=== PATIENT | female | born 1965 | race Hispanic/Latino ===

== ENCOUNTER 2019-07-13 19:16 | Emergency (ER) | payer SELFPAY ==
[2019-07-13 20:42] LABS: Absolute Lymphocytes (CBC) 1.5 K/uL (0.7-4.9); Basophils % 0.3 % (0-1.3); Hematocrit 41.4 % (36.0-45.0); Lymphocytes % 13.1 % (15.3-44.8); MPV 10.7 fL (7.6-11.3); RBC Red Blood Cell Count 4.89 M/uL (3.86-4.86)
[2019-07-13 20:48] LABS: Urine Bacteria <20 /HPF (<20)
[2019-07-13 20:49] LABS: Urine Blood TRACE (NEG); Urine Glucose NEGATIVE (NEG); Urine Protein NEGATIVE (NEG); Urine pH 7.5 (5.0-7.0)
[2019-07-13 20:49] LABS: Urine Culture Reflex Order NOT NEEDED
[2019-07-13] MEDS ORDERED: KETOROLAC 30 MG/ML INJ ONE (20:50)
[2019-07-13] MEDS ORDERED: ONDANSETRON 4 MG/2 ML VIAL ONE (20:51)
--- NOTE | 2019-07-13 20:51 | RAD REPORT ---
EXAM DESCRIPTION: CT - Stone Protocol - 07/13/2019 8:28 pm CLINICAL HISTORY: Abdominal pain. COMPARISON: None. TECHNIQUE: Computed axial tomography of the abdomen pelvis was obtained without oral or IV contrast. Lack of IV and oral contrast limits evaluation of solid organs, bowel, and vessels. Coronal reformat stephen images were obtained and reviewed. All CT scans are performed using dose optimization technique as appropriate and may include automated exposure control or mA/KV adjustment according to patient size. FINDINGS: Bilateral renal calculi. Marked right hydronephrosis and right hydroureter. 5 millimeter c alculus right UVJ Hounsfield unit 1084. No left hydronephrosis Fatty liver Gallstone without gallbladder wall thickening Spleen, pancreas and adrenals appear grossly normal There is no evidence of diverticulitis. The appendix appears normal IMPRESSION: 5 millimeter calculus right UVJ resulting in marked right hydronephrosis
[2019-07-13 21:00] LABS: Albumin 4.1 g/dL (3.4-5.0); Bilirubin Direct 0.1 mg/dL (0-0.2); Bilirubin Total 0.4 mg/dL (0.2-1.0); Potassium 3.1 mmol/L (3.5-5.1); Protein, Total 7.9 g/dL (6.4-8.2)
[2019-07-13] MEDS ORDERED: TAMSULOSIN 0.4 MG SR CAP ONE (22:25)
[2019-07-13] MEDS ORDERED: POTASSIUM 25 MEQ EFFERV TAB ONE (22:26)
--- NOTE | 2019-07-13 22:48 | EDPHYS ---
Physician Documentation [facility] Name: Mary Ann Wall Age: 53 yrs Sex: Female : 1965 Arrival Date: 07/13/2019 Time: 19:19 Bed 19 Private MD: ED Physician Juan Pinedo HPI: 07/13 21:53 This 53 yrs old Female presents to ER via Ambulatory with complaints of tw4 Possible Kidney Stone. 21:53 The patient complains of pain in the right mid back. tw4 21:54 The pain does not radiate. Onset: The symptoms/episode began/occurred today. Modifying tw4 factors: The symptoms are alleviated by nothing. the symptoms are aggravated by nothing. Associated signs and symptoms: Pertinent positives: nausea, vomiting. Severity of pain: At its worst the pain was severe in the emergency department the pain is unchanged. The patient has not experienced similar symptoms in the past. 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 - Social history:: Smoking status: Patient/guardian denies using tobacco. - Ebola Screening: : Patient denies travel to an Ebola-affected area in the 21 days before illness onset. ROS: 21:54 Constitutional: Negative for fever, chills, and weight loss, Eyes: Negative for injury, tw4 pain, redness, and discharge, Cardiovascular: Negative for chest pain, palpitations, and edema, Respiratory: Negative for shortness of breath, cough, wheezing, and pleuritic chest pain, Abdomen/GI: Negative for abdominal pain, nausea, vomiting, diarrhea, and constipation, MS/Extremity: Negative for injury and deformity, Skin: Negative for injury, rash, and discoloration, Neuro: Negative for headache, weakness, numbness, tingling, and seizure. 21:54 Back: Positive for pain at rest, flank pain, Negative for injury or acute deformity, pain with movement. Exam: 21:54 Constitutional: This is a well developed, well nourished patient who is awake, alert, tw4 and in no acute distress. Head/Face: Normocephalic, atraumatic. 21:54 Chest/axilla: Normal chest wall appearance and motion. Nontender with no deformity. No lesions are appreciated. Cardiovascular: Regular rate and rhythm with a normal S1 and S2. No gallops, murmurs, or rubs. Normal PMI, no JVD. No pulse deficits. Respiratory: Lungs have equal breath sounds bilaterally, clear to auscultation and percussion. No rales, rhonchi or wheezes noted. No increased work of breathing, no retractions or nasal flaring. Abdomen/GI: Soft, non-tender, with normal bowel sounds. No distension or tympany. No guarding or rebound. No evidence of tenderness throughout. MS/ Extremity: Pulses equal, no cyanosis. Neurovascular intact. Full, normal range of motion. Neuro: Awake and alert, GCS 15, oriented to person, place, time, and situation. Cranial nerves II-XII grossly intact. Motor strength 5/5 in all extremities. Sensory grossly intact. Cerebellar exam normal. Normal gait. 21:54 Back: pain, that is mild, ROM is normal, normal spinal alignment noted, CVA tenderness, that is moderate, is noted on the right, vertebral tenderness, is not appreciated. Vital Signs: 19:32 BP 159 / 84; Pulse 74; Resp 18; Temp 99.5; Pulse Ox 98% on R/A; Weight 74.39 kg (R); aj1 Height 5 ft. 2 in. (157.48 cm) (M); Pain 7/10; 20:45 BP 154 / 74; Pulse 72; Resp 18; Pulse Ox 98% on R/A; lp1 22:15 BP 119 / 57; Pulse 66; Resp 18; Pulse Ox 97% on R/A; lp1 19:32 Body Mass Index 30.00 (74.39 kg, 157.48 cm) aj1 MDM: 19:51 Patient medically screened. tw4 21:54 Differential diagnosis: nephrolithiasis, pyelonephritis, UTI. Data reviewed: vital tw4 signs, nurses notes. Data interpreted: Pulse oximetry: Interpretation: normal. Counseling: I had a detailed discussion with the patient and/or guardian regarding: the historical points, exam findings, and any diagnostic results supporting the discharge/admit diagnosis, lab results, radiology results. Medication response: Toradol relieved patient's pain. The symptoms have resolved. Response to treatment: and as a result, I will discharge patient. 07/13 20:06 Order name: Urine Dipstick--Ancillary (enter results); Complete Time: 22:21 ar5 07/13 20:14 Order name: Urine Microscopic Only; Complete Time: 22:21 lp1 07/13 20:33 Order name: Basic Metabolic Panel; Complete Time: 22:21 tw4 07/13 20:33 Order name: CBC with Diff tw4 07/13 20:33 Order name: Creatinine for Radiology; Complete Time: 22:21 tw4 07/13 20:33 Order name: Hepatic Function; Complete Time: 22:21 tw4 07/13 20:14 Order name: Urine Dipstick-Ancillary (obtain specimen); Complete Time: 20:14 lp1 07/13 20:15 Order name: Stone Protocol CT; Complete Time: 22:02 lp1 07/13 20:33 Order name: Lipase; Complete Time: 22:21 tw4 07/13 20:33 Order name: IV Saline Lock; Complete Time: 21:10 tw4 07/13 20:33 Order name: Labs collected and sent; Complete Time: 21:10 tw4 Administered Medications: 20:55 Drug: TORadol 30 mg Route: IVP; Site: right antecubital; lp1 21:47 Follow up: Response: Pain is decreased lp1 20:55 Drug: Zofran 4 mg Route: IVP; Site: right antecubital; lp1 21:15 Follow up: Response: Nausea is decreased lp1 22:32 Drug: Potassium Effervescent Tablet 50 mEq Route: PO; lp1 23:01 Follow up: Response: No adverse reaction lp1 22:32 Drug: Flomax 0.4 mg Route: PO; lp1 23:02 Follow up: Response: No adverse reaction lp1 Disposition: 07/13/19 22:47 Discharged to Home. Impression: Calculus of kidney with calculus of ureter. - Condition is Stable. - Discharge Instructions: Kidney Stones, Renal Colic, Lithotripsy. - Prescriptions for Flomax 0.4 mg Oral Capsule, Sust. Release 24 hr - take 1 capsule by ORAL route once daily 1/2 hour following the same meal each day; 30 capsule. Tramadol 50 mg Oral Tablet - take 1 tablet by ORAL route every 8 hours as needed; 12 tablet. - Work release form, Medication Reconciliation Form, Thank You Letter, Antibiotic Education, Prescription Opioid Use form. - Follow up: Mina Rice MD; When: As needed; Reason: Recheck today's complaints, Continuance of care. - Problem is new. - Symptoms have improved. Signatures: Dispatcher [employer] EDDennise Sotelo RN RN aj1 Mylene Ayala RN RN lp1 Juan Pinedo MD MD tw4 Corrections: (The following items were deleted from the chart) 23:02 22:47 07/13/2019 22:47 Discharged to Home. Impression: Calculus of kidney with calculus lp1 of ureter. Condition is Stable. Forms are Medication Reconciliation Form, Thank You Letter, Antibiotic Education, Prescription Opioid Use. Follow up: Mina Rice; When: As needed; Reason: Recheck today's complaints, Continuance of care. Problem is new. Symptoms have improved. tw4
--- NOTE | 2019-07-13 22:48 | ER ---
Nurse's Notes [facility] Name: Mary Ann Wall Age: 53 yrs Sex: Female : 1965 Arrival Date: 07/13/2019 Time: 19:19 Bed 19 Private MD: Diagnosis: Calculus of kidney with calculus of ureter Presentation: 07/13 19:29 Presenting complaint: Child states: "We came here 2 weeks ago and they said she had aj1 kidney stones. Today she started having pain again and she just vomited, and she is having a lot of pain" Patient did not follow up with urology after ER visit. Transition of care: patient was not received from another setting of care. Onset of symptoms was July 13, 2019. Risk Assessment: Do you want to hurt yourself or someone else? Patient reports no desire to harm self or others. Initial Sepsis Screen: Does the patient meet any 2 criteria? No. Patient's initial sepsis screen is negative. Does the patient have a suspected source of infection? No. Patient's initial sepsis screen is negative. Care prior to arrival: None. 19:29 Method Of Arrival: Ambulatory aj1 19:29 Acuity: AIDAN 3 aj1 Triage Assessment: 19:32 General: Appears in no apparent distress. comfortable, Behavior is calm, cooperative, aj1 appropriate for age. Pain: Complains of pain in back Pain. Pain: Pain currently is 7 out of 10 on a pain scale. Neuro: Level of Consciousness is awake, alert, obeys commands. Cardiovascular: Patient's skin is warm and dry. Respiratory: Airway is patent Respiratory effort is even, unlabored, Respiratory pattern is regular, symmetrical. GI: Reports nausea, vomiting. 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 - Social history:: Smoking status: Patient/guardian denies using tobacco. - Ebola Screening: : Patient denies travel to an Ebola-affected area in the 21 days before illness onset. Screenin:12 Abuse screen: Denies threats or abuse. Denies injuries from another. Nutritional lp1 screening: No deficits noted. Tuberculosis screening: No symptoms or risk factors identified. Fall Risk None identified. Assessment: 20:15 General: Appears uncomfortable, Behavior is appropriate for age. Pain: Complains of lp1 pain in right low back Pain currently is 9 out of 10 on a pain scale. Quality of pain is described as sharp, stabbing. Neuro: Level of Consciousness is awake, alert, obeys commands, Oriented to person, place, time, situation. Cardiovascular: Patient's skin is warm and dry. Respiratory: Respiratory effort is even, unlabored. GI: Abdomen is non-distended, Bowel sounds present X 4 quads. Abd is soft and non tender X 4 quads. Reports nausea. : No signs and/or symptoms were reported regarding the genitourinary system. EENT: No signs and/or symptoms were reported regarding the EENT system. Derm: Skin is pink, warm \\T\\ dry. Musculoskeletal: No deficits noted. 21:15 Reassessment: Patient states nausea decreased, tolerating water. lp1 22:32 Reassessment: Patient appears in no apparent distress at this time. Patient states pain lp1 tolerable at this time. Vital Signs: 19:32 BP 159 / 84; Pulse 74; Resp 18; Temp 99.5; Pulse Ox 98% on R/A; Weight 74.39 kg (R); aj1 Height 5 ft. 2 in. (157.48 cm) (M); Pain 7/10; 20:45 BP 154 / 74; Pulse 72; Resp 18; Pulse Ox 98% on R/A; lp1 22:15 BP 119 / 57; Pulse 66; Resp 18; Pulse Ox 97% on R/A; lp1 19:32 Body Mass Index 30.00 (74.39 kg, 157.48 cm) aj1 ED Course: 19:19 Patient arrived in ED. cl3 19:31 Triage completed. aj1 19:32 Arm band placed on Patient placed in waiting room, Patient notified of wait time. aj1 19:51 Juan Pinedo MD is Attending Physician. tw4 20:10 Inserted saline lock: 22 gauge in right antecubital area, using aseptic technique. lp1 20:13 Mylene Ayala, RN is Primary Nurse. lp1 20:14 Flank pain workup initiated per nursing protocol. lp1 20:15 Patient has correct armband on for positive identification. Placed in gown. Pulse ox lp1 on. NIBP on. 20:[address] via wheelchair. md1 20:26 CT completed. Patient tolerated procedure well. Patient moved back from CT. og 20:[address] In Process Unspecified. EDMS 22:33 No provider procedures requiring assistance completed. lp1 22:45 Mina Rice MD is Referral Physician. tw4 23:01 IV discontinued, No redness/swelling at site. Pressure dressing applied. lp1 Administered Medications: 20:55 Drug: TORadol 30 mg Route: IVP; Site: right antecubital; lp1 21:47 Follow up: Response: Pain is decreased lp1 20:55 Drug: Zofran 4 mg Route: IVP; Site: right antecubital; lp1 21:15 Follow up: Response: Nausea is decreased lp1 22:32 Drug: Potassium Effervescent Tablet 50 mEq Route: PO; lp1 23:01 Follow up: Response: No adverse reaction lp1 22:32 Drug: Flomax 0.4 mg Route: PO; lp1 23:02 Follow up: Response: No adverse reaction lp1 Outcome: 22:47 Discharge ordered by . tw4 23:01 Discharged to home ambulatory, with family. lp1 23:01 Condition: good 23:01 Discharge instructions given to patient, family, Instructed on discharge instructions, follow up and referral plans. Demonstrated understanding of instructions, follow-up care, medications, Prescriptions given X 2. 23:02 Patient left the ED. lp1 Signatures: Dispatcher [employer] EDMS Dennise Loredo RN RN aj1 Mylene Ayala, RN RN lp1 Juan Pinedo MD MD 4 Keo Gonsales 3 Audra Cedillo
[2019-07-14 01:39] VITALS: TEMP 99.5
[2019-07-14 01:43] VITALS: BP 119/57; O2SAT 97
== END 2019-07-13 23:02 | disposition home or self-care (01) ==
LOC: ER 19:16
DX: N20.2 Calculus of kidney with calculus of ureter (principal); Z87.442 Personal history of urinary calculi
CPT/HCPCS: 36415; 74176; 76377; 80048; 80076; 81003; 81015; 83690; 85025; 96374; 96375; 99284; J2405

== ENCOUNTER → 2023-09-15 | Emergency (ER) | payer OTHER ==
[2023-09-15 14:46] LABS: Absolute Lymphocytes (CBC) 1.7 K/uL (0.7-4.9); Hematocrit 28.2 % (36.0-45.0); Lymphocytes % 17.3 % (15.3-44.8); MCV 81.9 fL (80-100); MPV 8.6 fL (7.6-11.3); Platelets 260 thou/uL (152-406); RBC Red Blood Cell Count 3.44 M/uL (3.86-4.86)
[2023-09-15 15:07] LABS: Albumin 3.5 g/dL (3.4-5.0); Bilirubin Total 0.4 mg/dL (0.2-1.0); Potassium 3.1 mEq/L (3.5-5.1); Protein, Total 7.5 g/dL (6.4-8.2)
[2023-09-15 15:18] LABS: Urine Bacteria 20-50 /HPF (<20); Urine Mucus 2+ /HPF (None Seen); Urine RBC >50 /HPF (None Seen)
--- NOTE | 2023-09-15 15:27 | RAD REPORT ---
EXAM DESCRIPTION: CTAbdomen Pelvis W Contrast - 09/15/2023 2:54 pm CLINICAL HISTORY: Abdominal pain. pelvic pain COMPARISON: Abdomen Pelvis W Contrast dated 08/02/2023 TECHNIQUE: Biphasic CT imaging of the abdomen and pelvis was performed with 100 ml non-ionic IV cont rast. All CT scans are performed using dose optimization technique as appropriate and may include automated exposure control or mA/KV adjustment according to patient size. FINDINGS: The lung bases are clear. The liver is diffusely fatty. Cholelithiasis. Spleen, pancreas, adrenal glands are within normal limi ts. Severe bilateral hydronephrosis and hydroureter is present. This appears to extend throughout the ureter to the level of the urinary bladder. There is quite and irregular appearance to the cervix. T his suggests that cervical neoplasia could be the cause of this finding. Fluid retention is seen in t he endometrium. Bilateral stones are seen in both inferior calices of both kidneys, largest on the left measuring 9 m m. No bowel obstruction, free air, free fluid or abscess. Moderate stool is present in the colon to The appendix is normal. No evidence of significant lymphadenopathy. No suspicious bony findings. IMPRESSION: Moderate bilateral hydronephrosis and hydroureter is present. I suspect that this is cau sed by a cervical neoplasm. Pap correlation recommended. Bilateral inferior caliceal renal stones. Cholelithiasis.
--- NOTE | 2023-09-15 18:16 | ER ---
Nurse's Notes [facility] Name: Mary Ann Wall Age: 57 yrs Sex: Female : 1965 Arrival Date: 09/15/2023 Time: 14:05 Bed 17 Private MD: Dl Goldstein Diagnosis: Gross hematuria;UTI;Urinary retention Presentation: 09/15 14:15 Chief complaint: Patient states: Severe pain to pelvic area, pt reports unable to ld1 urinate since this morning. Bloating and pain to lower abdomen. Pt has cervical cancer. Reports vaginal bleeding with clots. Coronavirus screen: At this time, the client does not indicate any symptoms associated with coronavirus-19. Ebola Screen: No symptoms or risks identified at this time. Initial Sepsis Screen: Does the patient meet any 2 criteria? No. Patient's initial sepsis screen is negative. Does the patient have a suspected source of infection? No. Patient's initial sepsis screen is negative. Risk Assessment: Do you want to hurt yourself or someone else? Patient reports no desire to harm self or others. Onset of symptoms was September 15, 2023. 14:15 Method Of Arrival: Ambulatory ld1 14:15 Acuity: AIDAN 3 ld1 Triage Assessment: 14:16 General: Appears in no apparent distress. uncomfortable, Behavior is cooperative, ld1 anxious, crying. Pain: Complains of pain in suprapubic area Pain does not radiate. Pain currently is 10 out of 10 on a pain scale. Quality of pain is described as sharp, shooting, throbbing, Pain began 4 hours ago. Is. EENT: No signs and/or symptoms were reported regarding the EENT system. Neuro: Level of Consciousness is awake, alert, obeys commands, Oriented to person, place, time, situation. Cardiovascular: Capillary refill < 3 seconds Patient's skin is warm and dry. . Respiratory: Airway is patent Respiratory effort is even, unlabored. GI: Abdomen is round non-distended. : Reports vaginal bleeding that is with clots. : Reports inability to void. Derm: No signs and/or symptoms reported regarding the dermatologic system. Historical: - Allergies: 14:16 No Known Allergies; ld1 - PMHx: 14:16 Cholelithiasis; Kidney stones; Cervical cancer; ld1 - PSHx: 14:16 tubal ligation; ld1 - Immunization history:: Adult Immunizations up to date. - Social history:: Smoking status: Patient denies any tobacco usage or history of. Patient/guardian denies using alcohol. - Family history:: not pertinent. Screenin:09 [facility] ED Fall Risk Assessment (Adult) History of falling in the last 3 months, db including since admission No falls in past 3 months (0 pts) Confusion or Disorientation No (0 pts) Intoxicated or Sedated No (0 pts) Impaired Gait No (0 pts) Mobility Assist Device Used No (0 pt) Altered Elimination No (0 pt) Score/Fall Risk Level 0 - 2 = Low Risk Oriented to surroundings, Maintained a safe environment. Abuse screen: Denies threats or abuse. Denies injuries from another. Nutritional screening: No deficits noted. Tuberculosis screening: No symptoms or risk factors identified. Assessment: 14:32 Reassessment: Patient appears in no apparent distress at this time. Patient and/or db family updated on plan of care and expected duration. Pain level reassessed. Patient is alert, oriented x 3, equal unlabored respirations, skin warm/dry/pink. PROBLEM URINATING. LAST URINATED AT 0500. STATES RECENT DIAGNOSIS OF CERVICAL CANCER. NOTED BLOOD IN URINE AFTER HOLMAN PLACEMENT. STATES BLOOD IN URINE FOR A COUPLE OF DAYS NOW. General: Appears in no apparent distress. comfortable, Behavior is calm, cooperative. Neuro: Level of Consciousness is awake, alert, obeys commands, Oriented to person, place, time, situation. : Urine is edis blood, Reports inability to void. 15:00 Reassessment: Patient appears in no apparent distress at this time. Patient and/or db family updated on plan of care and expected duration. Pain level reassessed. Patient is alert, oriented x 3, equal unlabored respirations, skin warm/dry/pink. 16:00 Reassessment: Patient appears in no apparent distress at this time. Patient and/or db family updated on plan of care and expected duration. Pain level reassessed. Patient is alert, oriented x 3, equal unlabored respirations, skin warm/dry/pink. 17:00 Reassessment: Patient appears in no apparent distress at this time. Patient and/or db family updated on plan of care and expected duration. Pain level reassessed. Patient is alert, oriented x 3, equal unlabored respirations, skin warm/dry/pink. Patient states feeling better. Patient states symptoms have improved. 18:15 Reassessment: Patient appears in no apparent distress at this time. Patient and/or db family updated on plan of care and expected duration. Pain level reassessed. Patient is alert, oriented x 3, equal unlabored respirations, skin warm/dry/pink. PATIENT HOLMAN CHANGED TO A LEG BAG HOLMAN. Vital Signs: 14:15 BP 173 / 106; Pulse 101; Resp 20; Temp 98.8(O); Pulse Ox 98% on R/A; Weight 72.57 kg; ld1 Height 5 ft. 2 in. ; Pain 10/10; 14:30 BP 179 / 84; Pulse 89; Resp 18; Pulse Ox 100% on R/A; db 15:30 BP 160 / 75; Pulse 88; Resp 18; Pulse Ox 99% on R/A; db 16:00 BP 162 / 72; Pulse 87; Resp 16; Pulse Ox 98% on R/A; db 17:00 BP 160 / 83; Pulse 87; Resp 16; Pulse Ox 100% on R/A; db 18:00 BP 166 / 84; Pulse 87; Resp 16; Pulse Ox 100% on R/A; db 14:15 Body Mass Index 29.26 (72.57 kg, 157.48 cm) ld1 14:15 Pain Scale: Adult ld1 ED Course: 14:07 Patient arrived in ED. ld1 14:07 Dl Goldstein DO is Private Physician. ld1 14:09 Galen Alegria MD is Attending Physician. rt 14:16 Triage completed. ld1 14:16 Arm band placed on right wrist. ld1 14:35 Holman cath inserted, using sterile technique, 18 Fr., by de, balloon inflated, to as6 gravity drainage, urine specimen collected. returned bloody urine. Patient tolerated well. 14:35 Inserted saline lock: 22 gauge in right antecubital area, using aseptic technique. db Blood collected. 14:39 Shante Ojeda, HEIDY is Primary Nurse. db 14:55 CT Abd/Pelvis - IV Contrast Only In Process Unspecified. EDMS 16:09 Patient has correct armband on for positive identification. Bed in low position. Call db light in reach. Side rails up X 1. Pulse ox on. NIBP on. Warm blanket given. 18:15 Nain Rogers MD is Referral Physician. rt 18:48 Provided Education on: DISCHARGE. db 18:48 No provider procedures requiring assistance completed. IV discontinued, intact, db bleeding controlled, No redness/swelling at site. Administered Medications: No medications were administered Medication: 18:48 VIS not applicable for this client. db Output: 18:15 Urine: 1800ml (Holman); Total: 1800ml. db Outcome: 18:16 Discharge ordered by MD. rt 18:48 Discharged to home ambulatory, with family, db 18:48 Condition: stable 18:48 Discharge instructions given to patient, Instructed on discharge instructions, follow up and referral plans. Prescriptions given X 2, 18:49 Patient left the ED. db Signatures: Dispatcher [employer] EDMS Romana French, RN RN ld1 Hemant Blount RN RN as6 Shante Ojeda, RN RN db Galen Alegria MD MD rt Corrections: (The following items were deleted from the chart) 14:16 14:15 Acuity: AIDNA 2 ld1 ld1 14:17 14:15 Chief complaint: Patient states: Severe pain to pelvic area, pt reports unable to ld1 urinate since this morning. Bloating and pain to lower abdomen. Pt has cervical cancer. ld1 15:16 14:36 Urinalysis W/Microscopic+U.LAB.BRZ drawn and sent. as6 EDNV
--- NOTE | 2023-09-15 18:16 | EDPHYS ---
Physician Documentation [facility] Name: Mary Ann Wall Age: 57 yrs Sex: Female : 1965 Arrival Date: 09/15/2023 Time: 14:05 Bed 17 Private MD: Dl Goldstein ED Physician Galen Alegria HPI: 09/15 14:24 This 57 yrs old Female presents to ER via Ambulatory with complaints of rt Urinary Problem, Vaginal Pain. 14:24 Patient presents to the ED with urinary retention. Patient does have a history of rt cervical cancer but is not receiving any treatments. Scheduled to start with radiology. The patient states that she has had episodes of constipation, but that had normal bowel movement yesterday. Reports pain to the suprapubic region. Reports passing blood with clots but no urine. Denies other acute complaints, symptoms are moderate severity, no other aggravating or alleviating factors.. Historical: - Allergies: 14:16 No Known Allergies; ld1 - PMHx: 14:16 Cholelithiasis; Kidney stones; Cervical cancer; ld1 - PSHx: 14:16 tubal ligation; ld1 - Immunization history:: Adult Immunizations up to date. - Social history:: Smoking status: Patient denies any tobacco usage or history of. Patient/guardian denies using alcohol. - Family history:: not pertinent. ROS: 14:24 Constitutional: Negative for fever, chills, and weight loss, Eyes: Negative for injury, rt pain, redness, and discharge, Cardiovascular: Negative for chest pain, palpitations, and edema, Respiratory: Negative for shortness of breath, cough, wheezing, and pleuritic chest pain, 14:24 MS/Extremity: Negative for injury and deformity, Skin: Negative for injury, rash, and discoloration, Neuro: Negative for headache, weakness, numbness, tingling, and seizure, Psych: Negative for depression, anxiety, suicide ideation, homicidal ideation, and hallucinations, 14:24 Abdomen/GI: Positive for abdominal pain, Negative for nausea, 14:24 : Positive for hematuria, Urinary retention, Exam: 14:24 Constitutional: This is a well developed, well nourished patient who is awake, alert, rt and in no acute distress. Head/Face: Normocephalic, atraumatic. Chest/axilla: Normal chest wall appearance and motion. Nontender with no deformity. No lesions are appreciated. Cardiovascular: Regular rate and rhythm with a normal S1 and S2. No gallops, murmurs, or rubs. Normal PMI, no JVD. No pulse deficits. Respiratory: Lungs have equal breath sounds bilaterally, clear to auscultation and percussion. No rales, rhonchi or wheezes noted. No increased work of breathing, no retractions or nasal flaring. Skin: Warm, dry with normal turgor. Normal color with no rashes, no lesions, and no evidence of cellulitis. MS/ Extremity: Pulses equal, no cyanosis. Neurovascular intact. Full, normal range of motion. Neuro: Awake and alert, GCS 15, oriented to person, place, time, and situation. Cranial nerves II-XII grossly intact. Motor strength 5/5 in all extremities. Sensory grossly intact. Cerebellar exam normal. Normal gait. Psych: Awake, alert, with orientation to person, place and time. Behavior, mood, and affect are within normal limits. 14:24 Abdomen/GI: Tenderness to the suprapubic region, mild guarding, no rebound, distention, Vital Signs: 14:15 BP 173 / 106; Pulse 101; Resp 20; Temp 98.8(O); Pulse Ox 98% on R/A; Weight 72.57 kg; ld1 Height 5 ft. 2 in. ; Pain 10/10; 14:30 BP 179 / 84; Pulse 89; Resp 18; Pulse Ox 100% on R/A; db 15:30 BP 160 / 75; Pulse 88; Resp 18; Pulse Ox 99% on R/A; db 16:00 BP 162 / 72; Pulse 87; Resp 16; Pulse Ox 98% on R/A; db 17:00 BP 160 / 83; Pulse 87; Resp 16; Pulse Ox 100% on R/A; db 18:00 BP 166 / 84; Pulse 87; Resp 16; Pulse Ox 100% on R/A; db 14:15 Body Mass Index 29.26 (72.57 kg, 157.48 cm) ld1 14:15 Pain Scale: Adult ld1 MDM: 14:17 Patient medically screened. rt 18:27 Differential diagnosis: Urinary retention, hematuria, UTI, bladder outlet obstruction. rt Data reviewed: vital signs, nurses notes, lab test result(s), radiologic studies. Consideration of Admission/Observation Escalation of care including admission/observation considered. Management of patient was discussed with the following: Attempted to contact Dr. Rogers via multiple phone calls, text message, unable to reach him.. 18:52 I considered the following discharge prescriptions or medication management in the rt emergency department Medications were administered in the Emergency Department. See MAR. Independent interpretation of the following test(s) in the Emergency Department CT Scan: My interpretation is Bladder is decompressed on my interpretation of CT scan images. Care significantly affected by the following chronic conditions: Cervical cancer. Counseling: I had a detailed discussion with the patient and/or guardian regarding the historical points, exam findings, and any diagnostic results supporting the discharge/admit diagnosis, lab results, radiology results, the need for outpatient follow up, to return to the emergency department if symptoms worsen or persist or if there are any questions or concerns that arise at home. ED course: Urine flowing clear after clots were removed, symptoms are improving. Hemodynamically stable, no significant anemia. Discussed return precautions with the patient. At this point, will leave catheter in to allow for continued drainage. Patient to follow-up with urology as an outpatient.. 09/15 14:23 Order name: CBC with Diff; Complete Time: 15:19 rt 09/15 14:23 Order name: CMP; Complete Time: 15:19 rt 09/15 15:16 Order name: Urine Microscopic Only; Complete Time: 15:19 EDMS 09/15 15:21 Order name: Urine Culture EDMS 09/15 14:23 Order name: CT Abd/Pelvis - IV Contrast Only; Complete Time: 15:28 rt 09/15 14:23 Order name: [place]; Complete Time: 14:30 rt Administered Medications: No medications were administered Disposition Summary: 09/15/23 18:16 Discharge Ordered Notes: Location: Home rt Problem: new rt Symptoms: have improved rt Condition: Stable rt Diagnosis - Gross hematuria rt - UTI rt - Urinary retention rt Followup: rt - With: Nain Rogers MD - When: 2 - 3 days - Reason: Discharge Instructions: - Discharge Summary Sheet rt - Hematuria, Adult rt - Acute Urinary Retention, Female rt - Urinary Tract Infection, Adult rt Forms: - Medication Reconciliation Form rt - Thank You Letter rt - Antibiotic Education rt - Prescription Opioid Use rt - Patient Portal Instructions rt - Leadership Thank You Letter rt Prescriptions: - acetaminophen-codeine 300-30 mg Oral tablet - take 1 tablet ORAL route every 6 hours; 18 tablet; Refills: 0, Product rt Selection Permitted - Cipro 500 mg Oral Tablet - take 1 tablet ORAL route every 12 hours for 10 days; 20 tablet; Refills: 0, rt Product Selection Permitted Signatures: Dispatcher [employer] Romana Galan RN RN ld1 Galen Alegria MD MD rt Corrections: (The following items were deleted from the chart) 15:16 14:24 Urinalysis W/Microscopic+U.LAB.BRZ ordered. EDMS EDMS
[2023-09-15 19:27] VITALS: BP 166/84; TEMP 98.8; O2SAT 100
== END ==
LOC: ER 14:05
DX: N39.0 Urinary tract infection, site not specified (principal); R33.9 Retention of urine, unspecified; Z85.41 Personal history of malignant neoplasm of cervix uteri; Z87.442 Personal history of urinary calculi
CPT/HCPCS: 87088; 85025; 87086; 36415; 81015; 80053; 74177; Q9967

== ENCOUNTER 2023-10-31 03:15 | Observation (INO) | payer OTHER ==
[2023-10-31] MEDS ORDERED: ASPIRIN 81 MG CHEWABLE TABLET ONE (03:40)
[2023-10-31] MEDS ORDERED: ONDANSETRON 4 MG/2 ML VIAL ONE (03:40)
[2023-10-31] MEDS ORDERED: FAMOTIDINE 20 MG/2 ML VIAL IV ONE (03:41)
[2023-10-31] MEDS ORDERED: NA CHLORIDE 0.9% 1,000 ML ONE (03:41)
[2023-10-31] MEDS ORDERED: MORPHINE 2 MG/ML SYR ONE ×2 (03:41→14:12)
[2023-10-31 04:08] LABS: Protime INR 1.28
[2023-10-31 04:09] LABS: Specific Gravity 1.006 (1.005-1.030); Sqamous Epithelial <5 /HPF (None Seen); Urine Bacteria <20 /HPF (<20); Urine Bilirubin NEGATIVE (Negative); Urine Blood 2+ (Negative); Urine Clarity Extremely Turbid (Clear); Urine Color Light-Orange (Yellow); Urine Culture Reflex Order REFLEXED; Urine Glucose NEGATIVE (Negative); Urine Ketones TRACE (Negative); Urine Microscopic Reflex YN ORDER UMIC; Urine Nitrite NEGATIVE (Negative); Urine Protein 1+ (Negative); Urine RBC <5 /HPF (None Seen); Urine Urobilinogen Normal (Normal); Urine WBC 20-50 /HPF (<5); Urine WBC Clump Many /HPF (None Seen); Urine Yeast (Budding) Many /HPF (None Seen); Urine pH 7.5 (5.0-7.0)
[2023-10-31 04:10] LABS: Absolute Lymphocytes (CBC) 0.2 K/uL (0.7-4.9); Absolute Monocytes 0.4 K/uL (0.1-1.3); Absolute Neutrophil 3.5 K/uL (1.8-8.0); Basophils % 0.4 % (0-1.3); Eosinophils % 0.9 % (0-4.4); Hematocrit 24.8 % (36.0-45.0); Hemoglobin 8.6 g/dL (12.0-15.0); Lymphocytes % 4.7 % (15.3-44.8); MCH 28.6 pg (27.0-35.0); MCHC 34.6 g/dL (32.0-36.0); MCV 82.7 fL (80-100); MPV 7.8 fL (7.6-11.3); Monocytes % 8.5 % (3.3-12.3); Neutrophils % 85.5 % (41.7-73.7); Platelets 242 thou/uL (152-406); Red Cell Distribution Width 15.2 % (12.1-15.2)
[2023-10-31 04:30] LABS: Albumin/Globulin Ratio 0.7 (1.1-1.8); Anion Gap 11.1 mEq/L (5.0-15.0); Bilirubin Direct 0.2 mg/dL (0-0.2); Bilirubin Indirect, Calculated 0.4 mg/dL (0.2-0.8); Bilirubin Total 0.6 mg/dL (0.2-1.0); Globulin 4.3 g/dL (2.3-3.5); Magnesium 1.9 mg/dL (1.6-2.4); Potassium 3.1 mEq/L (3.5-5.1); Protein, Total 7.3 g/dL (6.4-8.2); Troponin High Sensitivity 28.2 pg/mL (<58.9)
--- NOTE | 2023-10-31 04:42 | EDPHYS ---
Physician Documentation [facility] Name: Mary Ann Wall Age: 58 yrs Sex: Female : 1965 Arrival Date: 10/31/2023 Time: 03:15 Bed 16 Private MD: Dl Goldstein ED Physician Amor Ortiz HPI: 10/30 03:32 This 58 yrs old Female presents to ER via Unassigned with complaints of Chest forrest Pain. 03:32 The patient or guardian reports chest pain that is located primarily in the substernal forrest area, anterior chest wall, bilaterally. Onset: 1 day(s) ago. The pain radiates to. Associated signs and symptoms: Pertinent positives: nausea. The chest pain is described as aching. Modifying factors: The symptoms are alleviated by nothing. the symptoms are aggravated by nothing. Historical: - Home Meds: 03:35 oxycodone 5 mg Oral tablet 1 tabs every 6 hours [Active]; rv - PMHx: 03:35 cervical cancer; Cholelithiasis; Hypertension; Kidney stones; rv - PSHx: 03:35 tubal ligation; rv - Immunization history:: Adult Immunizations up to date. - Social history:: Smoking status: Patient denies any tobacco usage or history of. - Family history:: not pertinent. ROS: 03:32 Constitutional: Negative for fever, chills, and weight loss, Eyes: Negative for injury, forrest pain, redness, and discharge, ENT: Negative for injury, pain, and discharge, Neck: Negative for injury, pain, and swelling, Cardiovascular: Negative for chest pain, palpitations, and edema, Respiratory: Negative for shortness of breath, cough, wheezing, and pleuritic chest pain, Abdomen/GI: Negative for abdominal pain, nausea, vomiting, diarrhea, and constipation, Back: Negative for injury and pain, : Negative for injury, bleeding, discharge, and swelling, MS/Extremity: Negative for injury and deformity, Skin: Negative for injury, rash, and discoloration, Neuro: Negative for headache, weakness, numbness, tingling, and seizure, Psych: Negative for depression, anxiety, suicide ideation, homicidal ideation, and hallucinations, Allergy/Immunology: Negative for hives, rash, and allergies, Endocrine: Negative for neck swelling, polydipsia, polyuria, polyphagia, and marked weight changes, Hematologic/Lymphatic: Negative for swollen nodes, abnormal bleeding, and unusual bruising, 04:42 MS/extremity: Negative for acute changes, forrest Exam: 03:32 Constitutional: This is a well developed, well nourished patient who is awake, alert, forrest and in no acute distress. Head/Face: Normocephalic, atraumatic. Eyes: Pupils equal round and reactive to light, extra-ocular motions intact. Lids and lashes normal. Conjunctiva and sclera are non-icteric and not injected. Cornea within normal limits. Periorbital areas with no swelling, redness, or edema. ENT: Nares patent. No nasal discharge, no septal abnormalities noted. Tympanic membranes are normal and external auditory canals are clear. Oropharynx with no redness, swelling, or masses, exudates, or evidence of obstruction, uvula midline. Mucous membranes moist. Neck: Trachea midline, no thyromegaly or masses palpated, and no cervical lymphadenopathy. Supple, full range of motion without nuchal rigidity, or vertebral point tenderness. No Meningismus. Chest/axilla: Normal chest wall appearance and motion. Nontender with no deformity. No lesions are appreciated. Cardiovascular: Regular rate and rhythm with a normal S1 and S2. No gallops, murmurs, or rubs. Normal PMI, no JVD. No pulse deficits. Respiratory: Lungs have equal breath sounds bilaterally, clear to auscultation and percussion. No rales, rhonchi or wheezes noted. No increased work of breathing, no retractions or nasal flaring. Abdomen/GI: Soft, non-tender, with normal bowel sounds. No distension or tympany. No guarding or rebound. No evidence of tenderness throughout. Back: No spinal tenderness. No costovertebral tenderness. Full range of motion. Female : Normal external genitalia. Skin: Warm, dry with normal turgor. Normal color with no rashes, no lesions, and no evidence of cellulitis. MS/ Extremity: Pulses equal, no cyanosis. Neurovascular intact. Full, normal range of motion. Neuro: Awake and alert, GCS 15, oriented to person, place, time, and situation. Cranial nerves II-XII grossly intact. Motor strength 5/5 in all extremities. Sensory grossly intact. Cerebellar exam normal. Normal gait. Psych: Awake, alert, with orientation to person, place and time. Behavior, mood, and affect are within normal limits. 03:32 Back: bilater percutaneous nephrostomy tubes, 03:32 Musculoskeletal/extremity: Extremities: all appear grossly normal, with no appreciated pain with palpation, ROM: no acute changes, intact in all extremities, Circulation is intact in all extremities. Sensation intact. Compartment Syndrome exam of affected extremity: unable to examine. Joints: Weight bearing: able to fully bear weight, Tendon exam: specific tendon testing normal through active and passive range of motion DVT Exam: No signs of deep vein thrombosis. no pain, no swelling, no tenderness, negative Homans' sign noted on exam, no appreciated bluish discoloration, no erythema, no increased warmth, 03:47 ECG was reviewed by the Attending Physician. [facility] Vital Signs: 03:32 Pulse 100; Resp 20; Temp 98; Pulse Ox 95% on R/A; rv 05:00 BP 132 / 67; Pulse 81; Resp 18; Pulse Ox 95% on R/A; rv 06:00 BP 133 / 77; Pulse 90; Resp 18; Temp 98; Pulse Ox 96% on R/A; rv [place] Coma Score: 06:00 Eye Response: spontaneous(4). Motor Response: obeys commands(6). Verbal Response: rv oriented(5). Total: 15. MDM: 03:22 Patient medically screened. [facility] 03:48 Data reviewed: vital signs, nurses notes, lab test result(s), EKG, radiologic studies, [facility] plain films. 10/30 03:23 Order name: Basic Metabolic Panel; Complete Time: 04:32 [facility] 10/30 03:23 Order name: CBC with Diff; Complete Time: 04:23 [facility] 10/30 03:23 Order name: LFT's; Complete Time: 04:32 [facility] 10/30 03:23 Order name: Magnesium; Complete Time: 04:32 [facility] 10/30 03:23 Order name: NT PRO-BNP; Complete Time: 04:32 [facility] 10/30 03:23 Order name: PT-INR; Complete Time: 04:23 [facility] 10/30 03:23 Order name: Troponin HS; Complete Time: 04:32 [facility] 10/30 03:23 Order name: Lipase; Complete Time: 04:32 [facility] 10/30 03:23 Order name: Urinalysis w/ reflexes; Complete Time: 04:23 [facility] 10/30 04:15 Order name: Urine Culture EDID 10/30 06:33 Order name: Basic Metabolic Panel [facility] 10/30 06:33 Order name: Basic Metabolic Panel [facility] 10/30 06:33 Order name: CBC with Automated Diff EDID 10/30 06:33 Order name: CBC with Automated Diff [facility] 10/30 06:33 Order name: Lipid Profile [facility] 10/30 06:33 Order name: Lipid Profile [facility] 10/30 06:33 Order name: Troponin High Sensitivity [facility] 10/30 06:33 Order name: Troponin High Sensitivity [facility] 10/30 06:33 Order name: Troponin High Sensitivity [facility] 10/30 06:33 Order name: Troponin High Sensitivity [facility] 10/30 16:10 Order name: Potassium [facility] 10/30 03:23 Order name: XRAY Chest (1 view) [facility] 10/30 04:05 Order name: CT Chest For PE Angio [facility] 10/30 04:05 Order name: CT Abd/Pelvis - IV Contrast Only [facility] 10/30 06:33 Order name: Echo with Doppler [facility] 10/30 03:23 Order name: EKG; Complete Time: 03:24 [facility] 10/30 06:33 Order name: CONS Physician Consult [facility] 10/30 03:23 Order name: Cardiac monitoring; Complete Time: 03:37 [facility] 10/30 03:23 Order name: EKG - Nurse/Tech; Complete Time: 03:37 [facility] 10/30 03:23 Order name: IV Saline Lock; Complete Time: 03:37 [facility] 10/30 03:23 Order name: Labs collected and sent; Complete Time: 03:37 [facility] 10/30 03:23 Order name: O2 Per Protocol; Complete Time: 03:38 [facility] 10/30 03:23 Order name: O2 Sat Monitoring; Complete Time: 03:38 [facility] EC:47 Rate is 93 beats/min. Rhythm is regular. QRS [place] is Normal. [place] interval is normal. QRS forrest interval is normal. QT interval is normal. No Q waves. T waves are Normal. No ST changes noted. Clinical impression: NSR w/ Non-specific ST/T Changes, LVH, and No evidence of ischemia. Interpreted by me. Reviewed by me. Administered Medications: 03:53 Drug: Ondansetron IVP 4 mg IVP once; over 2 minutes Route: IVP; Site: right antecubital;rv 06:08 Follow up: Response: No adverse reaction rv 03:54 Drug: NS 0.9% IV 1000 ml IV at 125 ml/hr continuous Route: IV; Rate: 125 ml/hr; Site: rv right antecubital; 06:08 Follow up: IV Status: Infusion continued upon admission rv 03:54 Drug: Famotidine IVP 20 mg IVP once; dilute with 10 mL 0.9% NaCl; give over 2 minutes rv Route: IVP; Site: right antecubital; 06:08 Follow up: Response: No adverse reaction rv 03:54 Drug: Aspirin PO Chewable Tablet 324 mg PO once; 81 mg tablets x 4 Route: PO; rv 06:08 Follow up: Response: No adverse reaction rv 03:54 Drug: morphine IVP or IV 2 mg IVP once over 4 mins Route: IVP; Infused Over: 4 mins; rv Site: right antecubital; 06:08 Follow up: Response: No adverse reaction rv 06:07 Drug: Rocephin IV 1 grams IV at per protocol once; Given slow IV push per pharmacy rv instructions Route: IV; Rate: per protocol; Site: left antecubital; 06:08 Follow up: IV Status: Infusion continued upon admission rv 06:07 Drug: Potassium PO Effervescent Tablet 25 mEq PO once; dissolve in 4 ounces of water or rv juice Route: PO; 06:09 Follow up: Response: Medication administered at discharge. rv 06:08 Drug: levofloxacin IVPB 500 mg 100 ml IVPB once over 60 mins Volume: 100 ml; Route: rv IVPB; Infused Over: 60 mins; Site: right antecubital; 06:08 Follow up: IV Status: Infusion continued upon admission rv Disposition Summary: 10/31/23 04:41 Hospitalization Ordered Notes: Hospitalization Status: Observation forrest Provider: Dianelys Chambers forrest Condition: Stable forrest Problem: new forrest Symptoms: have improved forrest Bed/Room Type: Standard forrest Location: Telemetry/MedSurg (observation)(10/31/23 15:21) eb Room Assignment: 218(10/31/23 15:21) eb Diagnosis - Chest pain, unspecified forrest - Hypokalemia forrest - Hydronephrosis with ureteral stricture, not elsewhere classified - uterine cancer , forrest bilateral nepostomy tubes - Anemia, unspecified forrest - Abnormal findings on diagnostic imaging of other specified body structures - forrest multiple noncalcified pulmonary nodulescw metastatic disease, left pleural fliud - UTI/ Urinary tract infection, site not specified - bilateral nephrostomy(10/31/23 forrest 06:01) Forms: - Medication Reconciliation Form forrest - SBAR form forrest - Leadership Thank You Letter [facility] Signatures: Dispatcher [employer] EDMS Amor Ortiz MD MD cha Botello, Elizabeth eb Vicente, Ronaldo, RN RN rv Corrections: (The following items were deleted from the chart) 03:24 03:24 BASIC METABOLIC PANEL+C.LAB.BRZ ordered. EDMS EDMS 03:24 03:24 CBC+H.LAB.BRZ ordered. EDMS EDMS 03:24 03:24 HEPATIC FUNCTION+C.LAB.BRZ ordered. EDMS EDMS 03:24 03:24 MAGNESIUM+C.LAB.BRZ ordered. EDMS EDMS 03:24 03:24 PROBNP+C.LAB.BRZ ordered. EDMS EDMS 03:24 03:24 PROTIME (+INR)+COAG.LAB.BRZ ordered. EDMS EDMS 03:24 03:24 Troponin High Sensitivity+C.LAB.BRZ ordered. EDMS EDMS 03:24 03:24 LIPASE+C.LAB.BRZ ordered. EDMS EDMS 03:24 03:24 Urinalysis+U.LAB.BRZ ordered. EDMS EDMS 03:32 03:32 Chest For PE Angio+CT.RAD.BRZ ordered. EDMS EDMS 03:32 03:32 Abdomen Pelvis W Con+CT.RAD.BRZ ordered. EDMS EDMS 06:01 04:41 UTI/ Urinary tract infection, site not specified forrest forrest 09:03 04:41 Telemetry/MedSurg (observation) [facility] eb 09:03 04:41 [facility] eb 09:03 09:03 eb eb 15:21 09:03 [facility] ER HOLD eb eb 15:21 09:03 ERHOLD- eb eb
--- NOTE | 2023-10-31 04:42 | ER ---
Nurse's Notes [facility] Name: Mary Ann Wall Age: 58 yrs Sex: Female : 1965 Arrival Date: 10/31/2023 Time: 03:15 Bed 16 Private MD: Dl Goldstein Diagnosis: Chest pain, unspecified;Hypokalemia;Hydronephrosis with ureteral stricture, not elsewhere classified-uterine cancer , bilateral nepostomy tubes;Anemia, unspecified;UTI/ Urinary tract infection, site not specified-bilateral nephrostomy;Abnormal findings on diagnostic imaging of other specified body structures-multiple noncalcified pulmonary nodulescw metastatic disease, left pleural fliud Presentation: 10/30 03:32 Chief complaint: Patient states: presented to ED with chest pain started yesterday, rv fluctuating stabbing pain mid sternal, non radiating, pt is on radiation therapy in [facility]. denies injury/SOB. Coronavirus screen: At this time, the client does not indicate any symptoms associated with coronavirus-19. Ebola Screen: No symptoms or risks identified at this time. Initial Sepsis Screen: Does the patient meet any 2 criteria? No. Patient's initial sepsis screen is negative. Does the patient have a suspected source of infection? No. Patient's initial sepsis screen is negative. Risk Assessment: Do you want to hurt yourself or someone else? Patient reports no desire to harm self or others. Onset of symptoms was October 31, 2023. 03:32 Method Of Arrival: Ambulatory rv 03:32 Acuity: AIDAN 2 rv Triage Assessment: 03:35 General: Appears uncomfortable, Behavior is calm, cooperative. Pain: Complains of pain rv in chest Pain does not radiate. Neuro: Level of Consciousness is awake, alert, obeys commands, Oriented to person, place, time, situation. Cardiovascular: Capillary refill < 3 seconds Patient's skin is warm and dry. Cardiovascular: Chest pain is described as severe, quality is stabbing, is located in chest wall. Respiratory: Airway is patent Respiratory effort is even, unlabored. Derm: Skin is intact. Historical: - Home Meds: 03:35 oxycodone 5 mg Oral tablet 1 tabs every 6 hours [Active]; rv - PMHx: 03:35 cervical cancer; Cholelithiasis; Hypertension; Kidney stones; rv - PSHx: 03:35 tubal ligation; rv - Immunization history:: Adult Immunizations up to date. - Social history:: Smoking status: Patient denies any tobacco usage or history of. - Family history:: not pertinent. Screenin:36 [facility] ED Fall Risk Assessment (Adult) History of falling in the last 3 months, rv including since admission No falls in past 3 months (0 pts) Score/Fall Risk Level 0 - 2 = Low Risk Oriented to surroundings, Maintained a safe environment, Educated pt \T\ family on fall prevention, incl call for assistance when getting out of bed, Assessed \T\ reinforced patient's understanding of fall precautions. Abuse screen: Denies threats or abuse. Denies injuries from another. Nutritional screening: No deficits noted. Tuberculosis screening: No symptoms or risk factors identified. Assessment: 03:37 Pain: Pain began 1 day ago. rv Vital Signs: 03:32 Pulse 100; Resp 20; Temp 98; Pulse Ox 95% on R/A; rv 05:00 BP 132 / 67; Pulse 81; Resp 18; Pulse Ox 95% on R/A; rv 06:00 BP 133 / 77; Pulse 90; Resp 18; Temp 98; Pulse Ox 96% on R/A; rv Amish Coma Score: 06:00 Eye Response: spontaneous(4). Motor Response: obeys commands(6). Verbal Response: rv oriented(5). Total: 15. ED Course: 03:20 Patient arrived in ED. gm2 03:21 Dl Goldstein DO is Private Physician. gm2 03:22 Amor Ortiz MD is Attending Physician. forrest 03:35 Triage completed. rv 03:35 Arm band placed on right wrist. rv 03:36 Patient has correct armband on for positive identification. Client placed on continuous rv cardiac and pulse oximetry monitoring. NIBP monitoring applied. monitoring analyst on. 03:36 No provider procedures requiring assistance completed. Patient maintains SpO2 rv saturation greater than 95% on room air. 03:38 Troponin HS Sent. rv 03:38 PT-INR Sent. rv 03:38 NT PRO-BNP Sent. rv 03:38 Magnesium Sent. rv 03:38 LFT's Sent. rv 03:38 CBC with Diff Sent. rv 03:38 Basic Metabolic Panel Sent. rv 03:38 Initial lab(s) drawn, by me, sent to lab. rv 03:46 Inserted saline lock: 18 gauge in right antecubital area, using aseptic technique. kmf Blood collected. 03:55 Urinalysis w/ reflexes Sent. rv 03:55 Lipase Sent. rv 04:11 XRAY Chest (1 view) In Process Unspecified. EDMS 04:39 Dianelys Chambers MD is Hospitalizing Provider. forrest 04:54 CT Chest For PE Angio In Process Unspecified. EDMS 04:54 CT Abd/Pelvis - IV Contrast Only In Process Unspecified. EDMS 06:15 Patient admitted, IV remains in place. rv Administered Medications: 03:53 Drug: Ondansetron IVP 4 mg IVP once; over 2 minutes Route: IVP; Site: right antecubital;rv 06:08 Follow up: Response: No adverse reaction rv 03:54 Drug: NS 0.9% IV 1000 ml IV at 125 ml/hr continuous Route: IV; Rate: 125 ml/hr; Site: rv right antecubital; 06:08 Follow up: IV Status: Infusion continued upon admission rv 03:54 Drug: Famotidine IVP 20 mg IVP once; dilute with 10 mL 0.9% NaCl; give over 2 minutes rv Route: IVP; Site: right antecubital; 06:08 Follow up: Response: No adverse reaction rv 03:54 Drug: Aspirin PO Chewable Tablet 324 mg PO once; 81 mg tablets x 4 Route: PO; rv 06:08 Follow up: Response: No adverse reaction rv 03:54 Drug: morphine IVP or IV 2 mg IVP once over 4 mins Route: IVP; Infused Over: 4 mins; rv Site: right antecubital; 06:08 Follow up: Response: No adverse reaction rv 06:07 Drug: Rocephin IV 1 grams IV at per protocol once; Given slow IV push per pharmacy rv instructions Route: IV; Rate: per protocol; Site: left antecubital; 06:08 Follow up: IV Status: Infusion continued upon admission rv 06:07 Drug: Potassium PO Effervescent Tablet 25 mEq PO once; dissolve in 4 ounces of water or rv juice Route: PO; 06:09 Follow up: Response: Medication administered at discharge. rv 06:08 Drug: levofloxacin IVPB 500 mg 100 ml IVPB once over 60 mins Volume: 100 ml; Route: rv IVPB; Infused Over: 60 mins; Site: right antecubital; 06:08 Follow up: IV Status: Infusion continued upon admission rv Medication: 03:36 VIS not applicable for this client. rv Outcome: 04:41 Decision to Hospitalize by Provider. forrest 06:14 Admitted to ER Hold. [facility] documentation. rv 06:14 Condition: good 06:14 Instructed on the need for admit, 16:27 Patient left the ED. mb9 Signatures: Dispatcher [employer] EDAmor Posadas MD MD cha Vicente, Ronaldo RN RN rv Kiarra Bashir RN RN mb9 Crissy [facility] Corrections: (The following items were deleted from the chart) 06:09 06:08 IV Status: Completed infusion rv rv
[2023-10-31] MEDS: CEFTRIAXONE 1,000 MG in NA CHLORIDE 0.9% 50 ML IVPB ONE (05:56)
[2023-10-31] MEDS ORDERED: POTASSIUM 25 MEQ EFFERV TAB ONE (05:58)
[2023-10-31] MEDS ORDERED: WATER FOR INJ,STERILE 10 ML ONE (05:58)
[2023-10-31] MEDS ORDERED: CEFTRIAXONE 1000 MG/VIAL ONE (05:58)
--- NOTE | 2023-10-31 05:58 | P.HP ---
Certification for Inpatient Patient admitted to: Observation With expected LOS: <2 Midnights Patient will require the following post-hospital care: None Practitioner: I am a practitioner with admitting privileges, knowledge of patient current condition, hospital course, and medical plan of care. Services: Services provided to patient in accordance with Admission requirements found in Title 42 Section 412.3 of the Code of Federal Regulations Patient History Date of Service: 10/31/23 Reason for admission: Chest pain rule out acute coronary syndrome History of Present Illness: Patient is a 58-year-old female came to the hospital with chest discomfort. Patient is been having some chest pain in the sternal region. Patient denies any other complaints. She has stage IV cervical cancer. Patient developed obstructive uropathy after radiation treatment and a large cervical mass the patient required bilateral nephrostomy tubes. Patient has been doing well. She had extensive cardiac workup according to the patient prior to starting chemotherapy. Her workup was unremarkable. At this time patient is feeling better. Her chest pain is resolved. Patient will be admitted to the hospital for chest pain rule out acute coronary syndrome. Allergies No Known Allergies Allergy (Unverified 10/05/23 09:23) Home Medications: Oxycodone HCl 5 mg PO Q4HP PRN 10/31/23 - Past Medical/Surgical History -: Stage IV cervical cancer -: Bilateral nephrostomy tube - Family History Father Family History: Reviewed- Non-Contributory - Social History Smoking Status: Former smoker Alcohol use: No CD- Drugs: No Review of Systems 10-point ROS is otherwise unremarkable Physical Examination - Physical Exam General: Alert, In no apparent distress HEENT: Atraumatic, PERRLA, Mucous membr. moist/pink, EOMI, Sclerae nonicteric Neck: Supple, 2+ carotid pulse no bruit, No LAD, Without JVD or thyroid abnormality Respiratory: Clear to auscultation bilaterally, Normal air movement Cardiovascular: Regular rate/rhythm, Normal S1 S2 Gastrointestinal: Normal bowel sounds, No tenderness, Other (Bilateral nephrostomy tube) Musculoskeletal: No clubbing, No swelling, No tenderness Integumentary: No rashes Neurological: Normal gait, Normal speech, Normal strength at 5/5 x4 extr, Normal tone, Sensation intact, Cranial nerves 3-12 intact, Normal affect Lymphatics: No axilla or inguinal lymphadenopathy - Studies Laboratory Data (last 24 hrs) 10/31/23 10/31/23 10/31/23 03:48 03:48 03:48 WBC 4.10 L Hgb 8.6 L Hct 24.8 L Plt Count 242 PT 14.0 H INR 1.28 Sodium 134 L Potassium 3.1 L BUN 11 Creatinine 0.63 Glucose 118 H Magnesium 1.9 Total Bilirubin 0.6 AST 15 ALT 20 Alkaline Phosphatase 67 Lipase 14 Assessment & Plan - Problems (Diagnosis) (1) Chest pain, rule out acute myocardial infarction Current Visit: Yes Status: Acute (2) Cervical cancer, FIGO stage IV Current Visit: Yes Status: Acute (3) Obstructive uropathy Current Visit: Yes Status: Acute (4) Nephrostomy status Current Visit: Yes Status: Acute - Plan -High-sensitivity troponin -Cardiology consultation -Echocardiogram and stress test pending cardiology recommendations -Repeat EKG -Work-up for other etiologies of cardiac chest pain if troponins remain negative -Lipid profile -Equity Structurer regarding modifying risk for cardiac disease Discharge Plan: Home Plan to discharge in: 24 Hours - Advance Directives Does patient have a Living Will: No Does patient have a Durable POA for Healthcare: No Critical Care: No Time Spent Managing PTS Care (In Minutes): 45
[2023-10-31] MEDS ORDERED: Levofloxacin500mg IV 500 MG/100 ML BAG IV ONE (05:59)
[2023-10-31] MEDS ORDERED: ACETAMINOPHEN 500 MG TAB PO PRN (06:29)
--- NOTE | 2023-10-31 07:02 | RAD REPORT ---
EXAM DESCRIPTION: RAD - Chest Single View - 10/31/2023 4:09 am CLINICAL HISTORY: CHEST PAIN COMPARISON: Chest Single View dated 10/04/2023; Chest For Pe Angio dated 10/31/2023 FINDINGS: Lines: None. Lungs: Increased prominence of the pulmonary interstitium as well as some scattered reticulonodular o pacities. Pleural: No significant pleural effusions or pneumothorax. Cardiac: Mild enlargement of the cardiopericardial silhouette. Mediastinum: Within normal limits. Bones: No acute fractures. Other: None IMPRESSION: Increased prominence of the interstitium with scattered reticulonodular opacities that c ould reflect mild pneumonia. Reference subsequent chest CT.
[2023-10-31 08:16] VITALS: BMI 27.2
[2023-10-31] MEDS ORDERED: ENOXAPARIN 40 MG/0.4 ML SQ ONE (08:55)
[2023-10-31] MEDS: ENOXAPARIN 40 MG/0.4 ML SQ SCH (09:00)
[2023-10-31] MEDS: MORPHINE 4 MG/ML SYR IV PRN (14:18)
--- NOTE | 2023-10-31 15:02 | P.DS ---
Admission Date: 10/31/23 Discharge Date: 11/01/23 Disposition: ROUTINE DISCHARGE Discharge Condition: GOOD Reason for Admission: Chest pain rule out acute coronary syndrome Consultations: Dr. Bush Brief History of Present Illness: Patient is a 58-year-old female came to the hospital with chest discomfort. Patient has been having some chest pain in the sternal region. Patient denies any other complaints. She has stage IV cervical cancer. Patient developed obstructive uropathy after radiation treatment and a large cervical mass the patient required bilateral nephrostomy tubes. Patient has been doing well. She had extensive cardiac workup according to the patient prior to starting chemotherapy. Her workup was unremarkable. At this time patient is feeling better. Her chest pain is resolved. Patient will be admitted to the hospital for chest pain rule out acute coronary syndrome. Vital Signs/Physical Exam: Temp Pulse Resp BP Pulse Ox 98.3 F 96 H 18 122/98 H 96 10/31/23 08:00 10/31/23 12:00 10/31/23 14:18 10/31/23 12:00 10/31/23 14:18 General: Alert, In no apparent distress, Oriented x3 HEENT: Atraumatic, Normocephalic Neck: Supple, 2+ carotid pulse no bruit Respiratory: Clear to auscultation bilaterally, Normal air movement Cardiovascular: No edema, Normal pulses, Regular rate/rhythm Capillary refill: <2 Seconds Gastrointestinal: Normal bowel sounds Musculoskeletal: No clubbing Integumentary: No rashes, Other (bilateral nephrostomy tubes) Neurological: Normal speech, Normal tone Lymphatics: No axilla or inguinal lymphadenopathy Urinary: Other (bilateral nephrostomy tubes) External genitalia: Deferred Rectal: Deferred Laboratory Data at Discharge: WBC 4.10 thou/uL (4.3-10.9) L 10/31/23 03:48 Hgb 8.6 g/dL (12.0-15.0) L 10/31/23 03:48 Hct 24.8 % (36.0-45.0) L 10/31/23 03:48 Plt Count 242 thou/uL (152-406) 10/31/23 03:48 PT 14.0 SECONDS (9.5-12.5) H 10/31/23 03:48 INR 1.28 10/31/23 03:48 Sodium 134 mEq/L (136-145) L 10/31/23 03:48 Potassium 3.1 mEq/L (3.5-5.1) L 10/31/23 03:48 BUN 11 mg/dL (7-18) 10/31/23 03:48 Creatinine 0.63 mg/dL (0.55-1.02) 10/31/23 03:48 Glucose 118 mg/dL (74-106) H 10/31/23 03:48 Magnesium 1.9 mg/dL (1.6-2.4) 10/31/23 03:48 Total Bilirubin 0.6 mg/dL (0.2-1.0) 10/31/23 03:48 AST 15 U/L (15-37) 10/31/23 03:48 ALT 20 U/L (13-56) 10/31/23 03:48 Alkaline Phosphatase 67 U/L (45-117) 10/31/23 03:48 Lipase 14 U/L (13-75) 10/31/23 03:48 Home Medications: levoFLOXacin [Levaquin] 500 mg PO DAILY #10 tab 10/31/23 New Medications: levoFLOXacin [Levaquin] 500 mg PO DAILY #10 tab Diet: Regular Activity: Ad yoni Followup: Dl Goldstein DO [Primary Care Provider] -
--- NOTE | 2023-10-31 15:35 | P.PN ---
Date of Service: 10/31/23 Pt seen and examined. Pt is a 58yo female with past medical history of of stage iv cervical cancer and obstructive uropathy who presents with chest discomfort. On admission, pt complained of pain with deep inspiration. CTA chest is negative for PE but it shows left pulm nodules ( biggest size is 1.2cm ). troponin is negative x 2. Of note, pt had extensive cardiac workup according to the patient prior to starting chemotherapy. Her workup was unremarkable. A/P: Chest pain: Will r/o ACS. troponin is negative x 2. Will trend troponin q6h. Continue SONAM therapy. Will keep pt NPO for NM stress test. F/u Echo. Consulted Cardiology. Hx of cervical cancer with mets to the lungs: Will continue outpt f/u with her oncologist. Hypokalemia: K is 3.1. Will replete and monitor. Hyponatremia: Anastasia s 134. Will continue gentle hydration and monitor. Anemia: Hgb is 8.6. Will monitor. Code: full
--- NOTE | 2023-10-31 15:51 | RAD REPORT ---
EXAM DESCRIPTION: CT - Abdomen Pelvis W Contrast - 10/31/2023 7:01 am CLINICAL HISTORY: The patient is 58 years old and is Female; ABD PAIN TECHNIQUE: Axial computed tomography images of the abdomen and pelvis with intravenous contrast. S agittal and coronal reformatted images were created and reviewed. This CT exam was performed using one or more of the following dose reduction techniques: automated exposure control, adjustment of t he mA and/or kV according to patient size, and/or use of iterative reconstruction technique. COMPARISON: October 04, 2023. FINDINGS: Lung bases: Bibasilar linear atelectasis and new patchy groundglass opacities. Bibasilar pulmonary nodules are also visualized, suspicious for metastatic disease. Pleural space: Trace left pleural fluid, new. ABDOMEN: Liver: Enlarged fatty liver. Gallbladder and bile ducts: Cholelithiasis. No ductal dilation. Pancreas: No findings to suggest acute pancreatitis. No mass visualized. No ductal dilation. Spleen: Unremarkable. No splenomegaly. Adrenals: Unremarkable. No mass. Kidneys and ureters: Bilateral percutaneous nephrostomy tubes. Bilateral nephrolithiasis. No hydr onephrosis or findings to suggest pyelonephritis. Stomach and bowel: Moderate stool in the rectum. No bowel dilatation or obstruction. No bowel wal l thickening. PELVIS: Appendix: The visualized appendix is normal. No pericecal inflammation to suggest acute appendici tis. Bladder: See below. Reproductive: Again noted is a heterogeneous mass in the anterior lower uterine segment/cervix wi th invasion of the bladder. Bladder wall thickening noted although the bladder is otherwise empty. No adnexal mass visualized. ABDOMEN and PELVIS: Intraperitoneal space: Unremarkable. No free air. No significant fluid collection. Bones/joints: Soft tissue mass again visualized with osseous destruction in the left inferior pub ic ramus, the latter increased compared with the prior study. Findings in the lumbar spine are unchanged. No acute fracture. No dislocation. Soft tissues: Unremarkable. Vasculature: Unremarkable. No abdominal aortic aneurysm. Lymph nodes: No pathologically enlarged lymph nodes. IMPRESSION: 1. Again noted is a heterogeneous mass in the anterior lower uterine segment/cervix wi th invasion of the bladder. Bladder wall thickening noted although the bladder is otherwise empty. 2. Bilateral percutaneous nephrostomy tubes. Bilateral nephrolithiasis without hydronephrosis. 3. Soft tissue mass again visualized with osseous destruction in the left inferior pubic ramus, the latter increased compared with the prior study. 4. Cholelithiasis. 5. Bibasilar linear atelectasis and new patchy groundglass opacities, suggesting superimposed infec tion. Bibasilar pulmonary nodules are also visualized, suspicious for metastatic disease. 6. Additional non-emergent findings as above. Electronically signed by: Taylor Hutton MD 10/31/2023 06:56 AM CDT Due to temporary technical issues with the PACS/Fluency reporting system, reports are being signed by the in house radiologists without review as a courtesy to insure prompt reporting. The interpreting radiologist is fully responsible for the content of the report
--- NOTE | 2023-10-31 17:51 | RAD REPORT ---
EXAM DESCRIPTION: CT - Chest For Pe Angio - 10/31/2023 7:06 am CLINICAL HISTORY: Chest pain;Dyspnea COMPARISON: None Available TECHNIQUE: Contiguous axial images of the chest were obtained from the thoracic inlet to the level o f the upper abdomen after the administration of intravenous contrast followed by reconstruction image s. Volume rendering images were performed. This exam was performed according to our departmental dose-optimization program, which includes autom ated exposure control, adjustment of the mA and/or kV according to patient size and/or use of iterati ve reconstruction technique. FINDINGS: There is a small left pleural fluid collection. Increased opacity of the left lower lung m ay represent atelectasis. I-like opacities within both lungs may represent scar versus subsegmental a telectasis. There are multiple noncalcified pulmonary nodules compatible with metastatic disease, lar gest one measuring 1.2 cm located at the left lower lung. There are mildly enlarged hilar lymph nodes . There is atherosclerosis. The liver is of decreased attenuation compatible with fatty infiltration. The aorta is of normal contour and tapering. There is no discrete filling defect within the pulmonary arterial system to suggest pulmonary emboli. There is no pneumothorax. IMPRESSION: 1. No CT evidence of acute pulmonary emboli. 2. Multiple noncalcified pulmonary nodules worrisome for metastatic disease. Please correlate. 3. Small left pleural fluid collection. Increased opacity of the left lower lung may represent atel ectasis. Electronically signed by: Lucio Dennison MD 10/31/2023 05:33 AM CDT Due to temporary technical issues with the PACS/Fluency reporting system, reports are being signed by the in house radiologists without review as a courtesy to insure prompt reporting. The interpreting radiologist is fully responsible for the content of the report
[2023-10-31 20:48] VITALS: O2SAT 96
[2023-11-01 05:03] LABS: Absolute Lymphocytes (CBC) 0.2 K/uL (0.7-4.9); Absolute Monocytes 0.4 K/uL (0.1-1.3); Absolute Neutrophil 2.8 K/uL (1.8-8.0); Basophils % 0.5 % (0-1.3); Eosinophils % 0.9 % (0-4.4); Hematocrit 24.5 % (36.0-45.0); Hemoglobin 8.4 g/dL (12.0-15.0); Lymphocytes % 5.4 % (15.3-44.8); MCH 28.7 pg (27.0-35.0); MCHC 34.5 g/dL (32.0-36.0); MCV 83.4 fL (80-100); MPV 7.7 fL (7.6-11.3); Monocytes % 12.1 % (3.3-12.3); Neutrophils % 81.1 % (41.7-73.7); Platelets 248 thou/uL (152-406); RBC Red Blood Cell Count 2.93 M/uL (3.86-4.86); Red Cell Distribution Width 15.3 % (12.1-15.2)
[2023-11-01 05:11] LABS: Anion Gap 8.2 mEq/L (5.0-15.0); Potassium 3.2 mEq/L (3.5-5.1)
[2023-11-01 06:00] VITALS: BP 140/58; TEMP 98.1
--- NOTE | 2023-11-01 07:27 | P.DS ---
Admission Date: 10/31/23 Discharge Date: 11/01/23 Reason for Admission: Chest pain rule out acute coronary syndrome Brief History of Present Illness: 58-year-old female came to the hospital with chest discomfort. Patient is been having some chest pain in the sternal region. Patient denies any other complaints. She has stage IV cervical cancer. Patient developed obstructive uropathy after radiation treatment and a large cervical mass the patient required bilateral nephrostomy tubes. Patient has been doing well. She had extensive cardiac workup according to the patient prior to starting chemotherapy. Her workup was unremarkable. At this time patient is feeling better. Her chest pain is resolved. Patient will be admitted to the hospital for chest pain rule out acute coronary syndrome. - Physical Exam General: Alert, In no apparent distress HEENT: Atraumatic, PERRLA, Mucous membr. moist/pink, EOMI, Sclerae nonicteric Neck: Supple, 2+ carotid pulse no bruit, No LAD, Without JVD or thyroid abnormality Respiratory: Clear to auscultation bilaterally, Normal air movement Cardiovascular: Regular rate/rhythm, Normal S1 S2 Gastrointestinal: Normal bowel sounds, No tenderness, Other (Bilateral nephrostomy tube) Musculoskeletal: No clubbing, No swelling, No tenderness Integumentary: No rashes Neurological: Normal gait, Normal speech, Normal strength at 5/5 x4 extr, Normal tone, Sensation intact, Cranial nerves 3-12 intact, Normal affect Lymphatics: No axilla or inguinal lymphadenopathy Hospital Course: 58year-old female patient with a past medical history of stage IV cervical cancer, status postchemotherapy, presented with chest pain. Symptoms improved with as needed analgesics, serial troponins negative, CTA of the chest negative. Patient tolerating diet, stable for discharge to home with follow-up appointment with primary care physician, follow-up with cardiology for outpatient cardiac testing PROBLEM: Chest pain improved Serial troponins negative CT of the chest negative Continue home medicines as previously prescribed Follow-up with Dr. Sorto with cardiology for outpatient cardiac testing GOAL: Clear understanding of disease process INSTRUCTIONS: Physician Discharge Instructions: -Follow-up with PCP in 1 to 2 weeks -Please call if any questions regarding hospital stay -Please call nursing station at [phone] if any nursing or medication q uestions -Return to the emergency room if symptoms worsen Diet: ADA, low sodium Activity: Fall precautions <Zuleika Amaro - Last Filed: 11/01/23 07:32> Admission Date: 10/31/23 Discharge Date: 11/01/23 Hospital Course: Pt seeen and examined. I agree withe the note by the [facility]ICE [facility]. Pt was admitted for chest pain. troponin was normal. CTA chest was negative for PE but showed pulm nodules due to mets. Pt was advised to follow up with Dr. Bush within 1 week. Continue to [facility] Oncologist. Ok to discharge pt. <Sejal Pritchett - Last Filed: 11/01/23 10:55> Disposition: ROUTINE DISCHARGE Discharge Condition: GOOD Vital Signs/Physical Exam: Temp Pulse Resp BP Pulse Ox 98.1 F 92 H 15 140/58 L 96 11/01/23 04:00 11/01/23 04:00 11/01/23 04:00 11/01/23 04:00 11/01/23 04:00 Laboratory Data at Discharge: WBC 3.50 thou/uL (4.3-10.9) L 11/01/23 04:23 Hgb 8.4 g/dL (12.0-15.0) L 11/01/23 04:23 Hct 24.5 % (36.0-45.0) L 11/01/23 04:23 Plt Count 248 thou/uL (152-406) 11/01/23 04:23 PT 14.0 SECONDS (9.5-12.5) H 10/31/23 03:48 INR 1.28 10/31/23 03:48 Sodium 137 mEq/L (136-145) 11/01/23 04:23 Potassium 3.2 mEq/L (3.5-5.1) L 11/01/23 04:23 BUN 9 mg/dL (7-18) 11/01/23 04:23 Creatinine 0.49 mg/dL (0.55-1.02) L 11/01/23 04:23 Glucose 110 mg/dL (74-106) H 11/01/23 04:23 Magnesium 1.9 mg/dL (1.6-2.4) 10/31/23 03:48 Total Bilirubin 0.6 mg/dL (0.2-1.0) 10/31/23 03:48 AST 15 U/L (15-37) 10/31/23 03:48 ALT 20 U/L (13-56) 10/31/23 03:48 Alkaline Phosphatase 67 U/L (45-117) 10/31/23 03:48 Triglycerides Cancelled 11/01/23 06:00 Cholesterol Cancelled 11/01/23 06:00 HDL Cholesterol Cancelled 11/01/23 06:00 Cholesterol/HDL Ratio Cancelled 11/01/23 06:00 Lipase 14 U/L (13-75) 10/31/23 03:48 <Zuleika Amaro - Last Filed: 11/01/23 07:32> Vital Signs/Physical Exam: Temp Pulse Resp BP Pulse Ox 98.1 F 92 H 15 140/58 L 96 11/01/23 04:00 11/01/23 04:00 11/01/23 04:00 11/01/23 04:00 11/01/23 04:00 Laboratory Data at Discharge: WBC 3.50 thou/uL (4.3-10.9) L 11/01/23 04:23 Hgb 8.4 g/dL (12.0-15.0) L 11/01/23 04:23 Hct 24.5 % (36.0-45.0) L 11/01/23 04:23 Plt Count 248 thou/uL (152-406) 11/01/23 04:23 PT 14.0 SECONDS (9.5-12.5) H 10/31/23 03:48 INR 1.28 10/31/23 03:48 Sodium 137 mEq/L (136-145) 11/01/23 04:23 Potassium 3.2 mEq/L (3.5-5.1) L 11/01/23 04:23 BUN 9 mg/dL (7-18) 11/01/23 04:23 Creatinine 0.49 mg/dL (0.55-1.02) L 11/01/23 04:23 Glucose 110 mg/dL (74-106) H 11/01/23 04:23 Magnesium 1.9 mg/dL (1.6-2.4) 10/31/23 03:48 Total Bilirubin 0.6 mg/dL (0.2-1.0) 10/31/23 03:48 AST 15 U/L (15-37) 10/31/23 03:48 ALT 20 U/L (13-56) 10/31/23 03:48 Alkaline Phosphatase 67 U/L (45-117) 10/31/23 03:48 Triglycerides Cancelled 11/01/23 06:00 Cholesterol Cancelled 11/01/23 06:00 HDL Cholesterol Cancelled 11/01/23 06:00 Cholesterol/HDL Ratio Cancelled 11/01/23 06:00 Lipase 14 U/L (13-75) 10/31/23 03:48 <Sejal Pritchett - Last Filed: 11/01/23 10:55> Diet: Regular Activity: Ad yoni Time spent managing pt's care (in minutes): 55 <Zuleika Amaro - Last Filed: 11/01/23 07:32> <Sejal Pritchett - Last Filed: 11/01/23 10:55> Home Medications: Oxycodone HCl 5 mg PO Q4HP PRN 10/31/23 Potassium Chloride 20 meq PO DAILY 5 Days #5 tab 11/01/23 New Medications: Potassium Chloride 20 meq PO DAILY 5 Days #5 tab Physician Discharge Instructions: PROBLEM: Chest pain improved Serial troponins Cervical mass, carcinoma stage IV On chemotherapy Continue home medicines as previously prescribed Follow-up with Dr. Sorto outpatient for stress test GOAL: Clear understanding of disease process INSTRUCTIONS: Physician Discharge Instructions: -Follow-up with PCP in 1 to 2 weeks -Please call if any questions regarding hospital stay -Please call nursing station at [phone] if any nursing or medication questions -Return to the emergency room if symptoms worsen Diet: ADA, low sodium Activity: Fall precautions Followup: Dl Goldstein DO [Primary Care Provider] - Usman Bush MD [ACTIVE - CAN ADMIT] -
[2023-11-01] MEDS ORDERED: POTASSIUM CL SA 10 MEQ TAB PO ONE (08:07)
--- NOTE | 2023-11-01 13:43 | EKG ---
Test Date: 2023-10-31 Test Time: 02:27:08 Front Line Supervisor: CLARE MEASUREMENT RESULTS: Intervals: Rate: 93 WV: 144 QRSD: 86 QT: 358 QTc: 445 Williamson: P: WV: 144 QRS: -2 T: 22 INTERPRETIVE STATEMENTS: Normal sinus rhythm Nonspecific ST abnormality Abnormal ECG Compared to ECG 10/04/2023 19:14:45 ST (T wave) deviation now present Electronically Signed On 11-01-23 13:37:16 CDT by Usman Bush
--- NOTE | 2023-11-01 18:09 | CON ---
Date of Consultation: 11/01/2023 Reason For Consultation: Chest pain. History Of Present Illness: A 58-year-old female with history of cervical cancer, on chemoradiation, comes in with pain, left side and the sternal region, not related to exertion. No shortness of tracy th. She has stage IV cervical cancer on chemoradiation. The patient is getting some chest radiation s. At this point, no active chest pain. Cardiac enzymes have been negative. Past Medical History: As outlined above in the HPI. Medications: Refer to reconciliation sheet for detailed list. Allergies: NO KNOWN DRUG ALLERGIES. Family History: No premature coronary artery disease or cancer. Social History: She does not smoke or drink. Does not use any drugs. Review of Systems: All systems reviewed are negative except mentioned in HPI. Physical Examination: Vital Signs: Reviewed. Head and Neck: Pupils are equal, reactive to light. Intact eye movements. No JVD. No cervical lym phadenopathy. Neck: Supple. Thyroid is not enlarged. Lungs: Clear to auscultation bilaterally. No rhonchi, rales, or crackles. No accessory muscle use. Heart: Regular rate and rhythm. No extra sounds. Abdomen: Soft, nontender. Bowel sounds positive. No organomegaly. No masses or hernia. No rigidi ty or rebound. Extremities: No edema, clubbing, cyanosis. Intact pulses. Skin: No rash. Neurologic: Alert, awake, oriented x3. No acute focal deficits appreciated. Investigations: BUN 9, creatinine 0.49, and troponins are negative. Hemoglobin is 8.4. Assessment/recommendations: 1.Chest pain. It is atypical pain. Negative cardiac enzyme. Plan for outpatient Lexiscan nuclear stress test and an echo. 2.Cervical cancer, advanced age and under chemoradiation, to be continued. 3.Hypertension. Blood pressure is acceptable. Continue current management. SR/MODL Voice ID: [id number] Report ID: [id number]
== END 2023-11-01 08:17 | disposition home or self-care (01) ==
LOC: ER 03:15 → ERHOLD 06:29 → 2ND 15:30
PROVIDERS: ADMIT Hospitalist; ATTEND Hospitalist
DX: R07.9 Chest pain, unspecified (principal); N13.9 Obstructive and reflux uropathy, unspecified; R91.8 Other nonspecific abnormal finding of lung field; C78.02 Secondary malignant neoplasm of left lung; C78.01 Secondary malignant neoplasm of right lung; N13.1 Hydronephrosis with ureteral stricture, not elsewhere classified; E87.6 Hypokalemia; E87.1 Hypo-osmolality and hyponatremia; D64.9 Anemia, unspecified; I10 Essential (primary) hypertension; Z93.6 Other artificial openings of urinary tract status; Z85.41 Personal history of malignant neoplasm of cervix uteri
CPT/HCPCS: 93005; 87088; 85025 ×2; 81001; 87086; 80048 ×2; 36415 ×2; 83735; 84132; 85610; 80061; 80076; 87077; 87186; 84484 ×4; 83690; 83880; 71275; 74177; 71045; 99285; Q9967; J1650; J2270 ×2; J2405; J7030; J0696; G0378 ×4

== ENCOUNTER 2023-12-26 14:57 | Inpatient (IN) | payer OTHER ==
[2023-12-26 15:36] LABS: Arterial Blood Carboxyhemoglob 1.9 % (0-1.5); Blood Gas Oxyhemoglobin 92.3 % (94-97); Blood O2 Saturation 95.5 % (92-98.5)
--- NOTE | 2023-12-26 15:40 | RAD REPORT ---
EXAM DESCRIPTION: RAD - Chest Single View - 12/26/2023 3:30 pm CLINICAL HISTORY: SOB COMPARISON: Chest Single View dated 10/31/2023; Chest Single View dated 10/04/2023; Chest For Pe Angio dated 10/31/2023 FINDINGS: Lines: Right IJ versus Port-A-Cath with tip overlying the distal SVC . Lungs: Patchy bilateral interstitial and airspace disease. Pleural: Bilateral pleural effusions . Cardiac: Partially obscured but probable cardiomegaly. Mediastinum: Within normal limits. Bones: No acute fractures. Other: None IMPRESSION: Bilateral interstitial airspace disease which may represent combination of metastatic di sease and pulmonary edema with pleural effusions. Pneumonia difficult to exclude radiographically.
[2023-12-26 16:10] LABS: PT Prothrombin Time 15.6 SECONDS (9.5-12.5); Protime INR 1.43
[2023-12-26 16:12] LABS: Albumin 2.4 g/dL (3.4-5.0); Albumin/Globulin Ratio 0.5 (1.1-1.8); Bilirubin Direct 0.2 mg/dL (0-0.2); Bilirubin Indirect, Calculated 0.3 mg/dL (0.2-0.8); Bilirubin Total 0.5 mg/dL (0.2-1.0); Globulin 4.9 g/dL (2.3-3.5); Protein, Total 7.3 g/dL (6.4-8.2)
[2023-12-26 16:27] LABS: Absolute Monocytes 0.5 K/uL (0.1-1.3); Eosinophils % 0.1 % (0-4.4); MCV 84.9 fL (80-100)
[2023-12-26 16:34] LABS: Anion Gap 10.3 mEq/L (5.0-15.0); Potassium 3.3 mEq/L (3.5-5.1); Troponin High Sensitivity 18.1 pg/mL (<58.9)
[2023-12-26 16:50] LABS: Absolute Lymphocytes (CBC) 0.4 K/uL (0.7-4.9); Absolute Neutrophil 6.9 K/uL (1.8-8.0); Basophils % 0.4 % (0-1.3); Hematocrit 23.9 % (36.0-45.0); Lymphocytes % 5.3 % (15.3-44.8); MCH 28.5 pg (27.0-35.0); MCHC 33.6 g/dL (32.0-36.0); MPV 7.6 fL (7.6-11.3); Monocytes % 6.7 % (3.3-12.3); Neutrophils % 87.5 % (41.7-73.7); Nucleated RBC Absolute Count 0.1 (0-0); Nucleated Red Blood Cells % 1.1 % (0-0); Platelets 353 thou/uL (152-406); RBC Red Blood Cell Count 2.81 M/uL (3.86-4.86)
[2023-12-26 18:26] LABS: Anisocytosis 1+; Blood Morphology Comment NOTED (NOT SEEN); Platelet Estimate ADEQ; Polychromasia 1+; White Blood Cell Scan OK (OK)
--- NOTE | 2023-12-26 19:10 | RAD REPORT ---
EXAM DESCRIPTION: CT - Chest For Pe Angio - 12/26/2023 6:58 pm CLINICAL HISTORY: DYSPNEA COMPARISON: Chest For Pe Angio dated 10/31/2023; Abdomen Pelvis W Contrast dated 10/31/2023 TECHNIQUE: Dynamically enhanced axial 3 mm thick images of the chest were obtained during administra tion of <100> mL Isovue 370 IV contrast. Coronal and oblique reconstruction images were generated and reviewed. Exam utilizes a protocol for optimal evaluation of pulmonary arterial tree. Maximum intensity projections 3D imaging was utilized All CT scans are performed using dose optimization technique as appropriate and may include automated exposure control or mA/KV adjustment according to patient size. FINDINGS: Chest Wall: No suspicious thyroid nodules or pathologic lymphadenopathy. For physical Port -A-Cath. Lungs: Enlarging and new bilateral pulmonary nodules compared with 10/31/2023. For example, there is a new right upper lobe nodule measuring 2 cm. A left lower lobe nodule measures 2.8 cm, previously 1. 8 cm. Pleura: Moderate bilateral pleural effusions. Mediastinum/geovani: Bilateral hilar adenopathy. Mediastinal lymphadenopathy also noted. Pulmonary arteries/Aorta: No filling defect identified. No aortic aneurysm. Heart: No significant pericardial effusion. Normal heart size. Upper abdomen: No acute abnormality. Bones: No acute abnormality. IMPRESSION: Negative for pulmonary embolism. Enlarging moderate bilateral pleural effusions and like ly underlying atelectasis. Metastatic disease has worsened since 10/31/23.
[2023-12-26] MEDS ORDERED: ACETAMINOPHEN 325 MG TABLET PO PRN (19:41)
[2023-12-26] MEDS ORDERED: ALBUTEROL 2.5 MG/3 ML NEB SOL NEB PRN (19:41)
--- NOTE | 2023-12-26 19:43 | EDPHYS ---
Physician Documentation [facility] Name: Mary Ann Wall Age: 58 yrs Sex: Female : 1965 Arrival Date: 12/26/2023 Time: 14:57 Bed 6 Private MD: ED Physician Galen Alegria HPI: 12/25 19:04 This 58 yrs old Female presents to ER via Wheelchair with complaints of rt Shortness Of Breath, Leg Swelling, Chest Pain. 19:04 Patient with known cervical cancer presents to the ED with shortness of breath, chest rt pain, difficulty breathing. Denies other acute complaints at this time, symptoms are severe in severity, no other aggravating or alleviating factors.. Historical: - Allergies: 15:08 No Known Allergies; as6 - PMHx: 15:08 Kidney stones; Hypertension; Cholelithiasis; cervical cancer; as6 - PSHx: 15:08 tubal ligation; nephosotmy; as6 - Immunization history:: Adult Immunizations up to date. - Infectious Disease History:: Denies. - Social history:: Smoking status: Patient denies any tobacco usage or history of. ROS: 20:03 Constitutional: Negative for fever, chills, and weight loss, Cardiovascular: Negative rt for chest pain, palpitations, and edema, Abdomen/GI: Negative for abdominal pain, nausea, vomiting, diarrhea, and constipation, MS/Extremity: Negative for injury and deformity, Skin: Negative for injury, rash, and discoloration, Neuro: Negative for headache, weakness, numbness, tingling, and seizure, Psych: Negative for depression, anxiety, suicide ideation, homicidal ideation, and hallucinations, 20:03 Respiratory: Positive for cough, shortness of breath, Exam: 20:03 Constitutional: This is a well developed, well nourished patient who is awake, alert, rt and in no acute distress. Head/Face: Normocephalic, atraumatic. Chest/axilla: Normal chest wall appearance and motion. Nontender with no deformity. No lesions are appreciated. Cardiovascular: Regular rate and rhythm with a normal S1 and S2. No gallops, murmurs, or rubs. Normal PMI, no JVD. No pulse deficits. Abdomen/GI: Soft, non-tender, with normal bowel sounds. No distension or tympany. No guarding or rebound. No evidence of tenderness throughout. Skin: Warm, dry with normal turgor. Normal color with no rashes, no lesions, and no evidence of cellulitis. MS/ Extremity: Pulses equal, no cyanosis. Neurovascular intact. Full, normal range of motion. Neuro: Awake and alert, GCS 15, oriented to person, place, time, and situation. Cranial nerves II-XII grossly intact. Motor strength 5/5 in all extremities. Sensory grossly intact. Cerebellar exam normal. Normal gait. 20:03 ECG was reviewed by the Attending Physician. 20:03 Respiratory: Coarse breath sounds heard on auscultation, moderate respiratory distress, Vital Signs: 15:05 BP 129 / 67; Pulse 117; Resp 20 S; Temp 97.5(O); Pulse Ox 81% on R/A; Weight 58.06 kg as6 (R); Height 5 ft. 2 in. (R); 15:43 Pulse 112; Resp 20; Pulse Ox 100% on BiPAP; ld1 17:20 BP 114 / 74; Pulse 109; Resp 35 S; Pulse Ox 99% on BiPAP; kc6 17:58 BP 141 / 69; Pulse 104; Resp 24 S; Pulse Ox 100% on R/A; kc6 19:10 BP 141 / 97; Pulse 108; Resp 42; Pulse Ox 100% on BiPAP; jb4 21:30 BP 130 / 96; Pulse 115; Resp 24; Pulse Ox 100% on BiPAP; FiO2 40 %; jb4 15:05 Body Mass Index 23.41 (58.06 kg, 157.48 cm) as6 MDM: 15:12 Patient medically screened. rt 20:03 Differential diagnosis: Pneumonia, CHF, pulmonary embolus. Data reviewed: vital signs, rt nurses notes, lab test result(s), EKG, radiologic studies. Consideration of Admission/Observation Patient was admitted/placed on observation. Management of patient was discussed with the following: Hospitalist: Agrees to admit. I considered the following discharge prescriptions or medication management in the emergency department Medications were administered in the Emergency Department. See MAR. Independent interpretation of the following test(s) in the Emergency Department X-Ray: My interpretation is Edema seen on my interpretation of x-ray images. Care significantly affected by the following chronic conditions: Metastatic cervical cancer. Counseling: I had a detailed discussion with the patient and/or guardian regarding the historical points, exam findings, and any diagnostic results supporting the discharge/admit diagnosis, lab results, radiology results, the need for further work-up and treatment in the hospital. Response to treatment: the patient's symptoms have markedly improved after treatment. 12/25 15:10 Order name: Basic Metabolic Panel; Complete Time: 16:53 ld1 12/25 15:10 Order name: CBC with Diff; Complete Time: 18:33 ld1 12/25 15:10 Order name: Troponin HS; Complete Time: 16:53 ld1 12/25 15:20 Order name: LFT's; Complete Time: 16:53 rt 12/25 15:20 Order name: NT PRO-BNP; Complete Time: 16:53 rt 12/25 15:20 Order name: PT-INR; Complete Time: 16:53 rt 12/25 15:20 Order name: ABG; Complete Time: 16:53 rt 12/25 15:50 Order name: Ptt, Activated; Complete Time: 16:53 kc6 12/25 18:11 Order name: CBC Smear Scan; Complete Time: 18:33 EDMS 12/25 19:46 Order name: Urinalysis w/ reflexes EDMS 12/25 15:10 Order name: XRAY Chest (1 view); Complete Time: 16:53 ld1 12/25 15:20 Order name: CT Chest For PE Angio; Complete Time: 19:17 rt 12/25 15:20 Order name: BIPAP rt 12/25 15:10 Order name: EKG; Complete Time: 15:10 12/25 15:10 Order name: Cardiac monitoring; Complete Time: 15:21 12/25 15:10 Order name: EKG - Nurse/Tech; Complete Time: 15:21 ld12/25 15:10 Order name: IV Saline Lock; Complete Time: 15:50 ld12/25 15:10 Order name: Labs collected and sent; Complete Time: 15:50 ld12/25 15:10 Order name: O2 Per Protocol; Complete Time: 15:10 ld12/25 15:10 Order name: O2 Sat Monitoring; Complete Time: 15:10 ld EC:03 Rate is 114 beats/min. Rhythm is regular, Sinus tachycardia with No ectopy. QRS [place] is rt Normal. [place] interval is normal. QRS interval is normal. QT interval is normal. No Q waves. T waves are Normal. No ST changes noted. Interpreted by me. Administered Medications: No medications were administered Disposition: 20:03 Critical Care:. rt Disposition Summary: 12/26/23 19:43 Hospitalization Ordered Notes: Hospitalization Status: Inpatient Admission rt Provider: Ariel Richardson rt Location: Intensive Care Unit rt Condition: Guarded rt Problem: new rt Symptoms: have improved rt Bed/Room Type: Standard rt Room Assignment: 3-(12/26/23 20:34) jb4 Diagnosis - Hypoxic respiratory failure rt - Pulmonary edema rt - Hyponatremia rt Forms: - Medication Reconciliation Form rt - SBAR form rt - Leadership Thank You Letter rt Critical care time excluding procedures: 20:03 Critical care time: Bedside Care: 30 minutes, Consultation: 5 minutes. Total time: 35 rt minutes Signatures: Dispatcher [employer] EDMichael Sanchez RN RN jb4 Romana French RN RN ld1 Hemant Blount RN RN as6 Galen Alegria MD MD rt Corrections: (The following items were deleted from the chart) 15:10 15:10 BASIC METABOLIC PANEL+C.LAB.BRZ ordered. EDMS EDMS 15:10 15:10 CBC+H.LAB.BRZ ordered. EDMS EDMS 15:10 15:10 Troponin High Sensitivity+C.LAB.BRZ ordered. EDMS EDMS 20:34 19:43 rt jb4
--- NOTE | 2023-12-26 19:43 | ER ---
Nurse's Notes [facility] Name: Mary Ann Wall Age: 58 yrs Sex: Female : 1965 Arrival Date: 12/26/2023 Time: 14:57 Bed 6 Private MD: Diagnosis: Hypoxic respiratory failure;Pulmonary edema;Hyponatremia Presentation: 12/25 15:05 Chief complaint: Parent and/or Guardian states: SOB that started last night and leg as6 swelling that started a few days ago. Coronavirus screen: At this time, the client does not indicate any symptoms associated with coronavirus-19. Ebola Screen: No symptoms or risks identified at this time. Initial Sepsis Screen: Does the patient meet any 2 criteria? No. Patient's initial sepsis screen is negative. Does the patient have a suspected source of infection? No. Patient's initial sepsis screen is negative. Risk Assessment: Do you want to hurt yourself or someone else? Patient reports no desire to harm self or others. Onset of symptoms was December 25, 2023. 15:05 Method Of Arrival: Wheelchair as6 15:05 Acuity: AIDAN 2 as6 Historical: - Allergies: 15:08 No Known Allergies; as6 - PMHx: 15:08 Kidney stones; Hypertension; Cholelithiasis; cervical cancer; as6 - PSHx: 15:08 tubal ligation; nephosotmy; as6 - Immunization history:: Adult Immunizations up to date. - Infectious Disease History:: Denies. - Social history:: Smoking status: Patient denies any tobacco usage or history of. Screenin:43 [facility] ED Fall Risk Assessment (Adult) History of falling in the last 3 months, ld1 including since admission No falls in past 3 months (0 pts). Abuse screen: Denies threats or abuse. Denies injuries from another. Nutritional screening: No deficits noted. Tuberculosis screening: No symptoms or risk factors identified. Assessment: 15:43 General: Appears in no apparent distress. uncomfortable, Behavior is calm, cooperative, ld1 appropriate for age. Pain: Complains of pain in low back area and chest Pain does not radiate. Pain currently is 10 out of 10 on a pain scale. Quality of pain is described as throbbing, Pain began suddenly, Is continuous. Neuro: Level of Consciousness is awake, alert, obeys commands, Oriented to person, place, time, situation. Cardiovascular: Capillary refill < 3 seconds Patient's skin is warm and dry. Rhythm is sinus rhythm. Respiratory: Airway is patent Respiratory effort is even, labored, Breath sounds are clear bilaterally. GI: Abdomen is flat, non-distended. : No signs and/or symptoms were reported regarding the genitourinary system. Derm: No signs and/or symptoms reported regarding the dermatologic system. Musculoskeletal: No signs and/or symptoms reported regarding the musculoskeletal system. 16:43 Reassessment: Patient appears in no apparent distress at this time. No changes from kc6 previously documented assessment. Patient and/or family updated on plan of care and expected duration. Pain level reassessed. Patient is alert, oriented x 3, equal unlabored respirations, skin warm/dry/pink. 17:58 Reassessment: Patient appears in no apparent distress at this time. No changes from kc6 previously documented assessment. Patient and/or family updated on plan of care and expected duration. Pain level reassessed. Patient is alert, oriented x 3, equal unlabored respirations, skin warm/dry/pink. 18:12 Reassessment: ATTEMPTED TO TRANSPORT PT TO CT ON A NRB. PT STARTED COUGHING AND STATES kc6 SHE FEELS INCREASINGLY SOB. STATES SHE DOESN'T THINK SHE CAN TOLERATE THE SCAN. PT BROUGHT BACK TO ROOM VIA STRETCHER. 18:44 Reassessment: PT TO CT VIA STRETCHER, ON BIPAP, WITH HEIDY AREVALO AND CONTACT MANAGER. kc6 19:10 Reassessment: Patient and/or family updated on plan of care and expected duration. Pain jb4 level reassessed. Pt is back from CT remains on bi-pap. respirations noted to be tachypneic, pt denies feeling short of breath, tired from work of breathing, or any other symptoms of respiratory distress. 20:00 Reassessment: Patient appears in no apparent distress at this time. No changes from jb4 previously documented assessment. Patient and/or family updated on plan of care and expected duration. Pain level reassessed. 21:00 Reassessment: Patient appears in no apparent distress at this time. No changes from jb4 previously documented assessment. Patient and/or family updated on plan of care and expected duration. Pain level reassessed. 21:42 Reassessment: Report called to ICU. jb4 Vital Signs: 15:05 BP 129 / 67; Pulse 117; Resp 20 S; Temp 97.5(O); Pulse Ox 81% on R/A; Weight 58.06 kg as6 (R); Height 5 ft. 2 in. (R); 15:43 Pulse 112; Resp 20; Pulse Ox 100% on BiPAP; ld1 17:20 BP 114 / 74; Pulse 109; Resp 35 S; Pulse Ox 99% on BiPAP; kc6 17:58 BP 141 / 69; Pulse 104; Resp 24 S; Pulse Ox 100% on R/A; kc6 19:10 BP 141 / 97; Pulse 108; Resp 42; Pulse Ox 100% on BiPAP; jb4 21:30 BP 130 / 96; Pulse 115; Resp 24; Pulse Ox 100% on BiPAP; FiO2 40 %; jb4 15:05 Body Mass Index 23.41 (58.06 kg, 157.48 cm) as6 ED Course: 15:00 Patient arrived in ED. im 15:08 Triage completed. as6 15:08 Galen Alegria MD is Attending Physician. rt 15:08 EKG done, by ED staff, reviewed by Galen Alegria MD. hb 15:09 Arm band placed on. as6 15:15 Client placed on continuous cardiac and pulse oximetry monitoring. NIBP monitoring hb applied. night monitor on. Pulse ox on. NIBP on. 15:32 XRAY Chest (1 view) In Process Unspecified. EDMS 15:32 No provider procedures requiring assistance completed. Missed attempt(s): 20 gauge in ld1 right antecubital area. 22 gauge in right antecubital area. 15:43 Patient has correct armband on for positive identification. Placed in gown. Bed in low ld1 position. Call light in reach. Side rails up X2. night monitor on. Pulse ox on. NIBP on. Door closed. Noise minimized. Warm blanket given. 15:49 Maria Fernanda Rose, HEIDY is Primary Nurse. kc6 15:50 Inserted saline lock: 22 gauge in left antecubital area, using aseptic technique. Blood kc6 collected. 19:00 CT Chest For PE Angio In Process Unspecified. EDMS 19:42 Ariel Richardson MD is Hospitalizing Provider. rt Administered Medications: No medications were administered Medication: 15:43 VIS not applicable for this client. ld1 Outcome: 19:43 Decision to Hospitalize by Provider. rt 22:06 Patient left the ED. jb4 Signatures: Dispatcher [employer] EDDevi Dupree RN Michael Romo RN RN jb4 Romana French RN RN ld1 Hemant Blount RN RN as6 Maria Fernanda Rose RN RN kc6 Galen Alegria MD MD rt Shanice Stoner Corrections: (The following items were deleted from the chart) 19:15 19:10 Reassessment: Patient appears in no apparent distress at this time. Patient jb4 and/or family updated on plan of care and expected duration. Pain level reassessed. Patient is alert, oriented x 3, equal unlabored respirations, skin warm/dry/pink. Pt is back from CT remains on bi-pap jb4
--- NOTE | 2023-12-26 19:46 | P.HP ---
Certification for Inpatient Patient admitted to: Inpatient With expected LOS: >2 Midnights Practitioner: I am a practitioner with admitting privileges, knowledge of patient current condition, hospital course, and medical plan of care. Services: Services provided to patient in accordance with Admission requirements found in Title 42 Section 412.3 of the Code of Federal Regulations Patient History Date of Service: 12/26/23 Reason for admission: SOB History of Present Illness: 58 yrs old Female with metastatic Cervical Cancer s/p radiation therapy, Kidney stones status post nephrostomy tube; Hypertension; Cholelithiasis presents with complaints of Shortness Of Breath, Leg Swelling, Chest Pain. Which has been going on for the last few days and has been progressively worsening hence was brought to ER. Patient denies any fever or chills. No sick contacts. Associated with cough which is nonproductive. No previous history of CHF. Shortness of breath was progressively getting worse and was unable to ambulate without shortness of breath. Complains of orthopnea as well. Patient also noted to have bilateral lower extremity swelling. Chest pain is retrosternal, nonradiating, not associated with any diaphoresis. Denies any nausea vomiting or diarrhea. Patient was assessed in the ER and had a CT and chest x-ray and was found to be in pulmonary edema. Patient was hypoxic hence asked to be placed on BiPAP. Patient is being admitted to the ICU for further management Allergies No Known Allergies Allergy (Unverified 10/05/23 09:23) Home medications list reviewed: Yes Home Medications: Oxycodone HCl 5 mg PO Q4HP PRN 10/31/23 Potassium Chloride 20 meq PO DAILY 5 Days #5 tab 11/01/23 - Past Medical/Surgical History Past Medical History: Reviewed- Non-Contributory -: Stage IV cervical cancer Past Surgical History: Reviewed- Non-Contributory -: Bilateral nephrostomy tube - Family History Family History: Reviewed- Non-Contributory - Social History Smoking Status: Never smoker Alcohol use: No CD- Drugs: No Review of Systems 10-point ROS is otherwise unremarkable Physical Examination - Vital Signs Temperature: 98.2 F Blood Pressure: 134/76 Pulse: 115 Respirations: 26 Pulse Ox (%): 100 - Physical Exam General: Alert, Oriented x3, Moderate distress HEENT: Atraumatic, Normocephalic Neck: Supple, 2+ carotid pulse no bruit Respiratory: Diminished, Crackles/rales, Friction rub Cardiovascular: Regular rate/rhythm, Normal S1 S2 Capillary refill: <2 Seconds Gastrointestinal: Soft and benign, Non-distended, W/out hepatosplenomegaly Musculoskeletal: No clubbing, Swelling Integumentary: No rashes, No breakdown Neurological: Normal speech, Normal strength at 5/5 x4 extr, Cranial nerves 3-12 intact, Normal reflexes 2+ Lymphatics: No axilla or inguinal lymphadenopathy - Studies Laboratory Data (last 24 hrs) 12/26/23 12/26/23 12/26/23 15:53 15:53 15:40 WBC Hgb Hct Plt Count PT 15.6 H INR 1.43 APTT 23.1 L Sodium Potassium BUN Creatinine Glucose Total Bilirubin 0.5 AST 33 ALT 38 Alkaline Phosphatase 59 12/26/23 12/26/23 15:40 15:40 WBC 7.80 Hgb 8.0 L Hct 23.9 L Plt Count 353 PT INR APTT Sodium 124 L Potassium 3.3 L BUN 21 H Creatinine 0.65 Glucose 166 H Total Bilirubin AST ALT Alkaline Phosphatase Assessment and Plan - Problems (Diagnosis) (1) Acute hypoxic respiratory failure Current Visit: Yes Status: Acute Plan: Acute hypoxic respiratory failure On BiPAP Admit to ICU Started on bronchodilators Will add on steroids as well Pulmonology consulted Acute pulmonary edema No previous history of CHF Started on Lasix IV Will obtain echocardiogram Will add on albumin as well Cardiology eval Possible pneumonia Started on Rocephin and Zithromax Will obtain cultures Stop antibiotic monitor cultures are negative Hyponatremia Hypokalemia Electrolytes monitor and replace accordingly Anemia of chronic disease Monitor CBC daily Transfuse as needed Metastatic cervical cancer Follow-up outpatient with heme oncology Discussed with family GI/DVT prophylaxis Advanced directive full code Total critical care time used was 48 minutes Discharge Plan: Home Plan to discharge in: Greater than 2 days - Advance Directives Does patient have a Living Will: No Does patient have a Durable POA for Healthcare: No - Code Status/Comfort Care Code Status: Full Code Time Spent Managing Pts Care (In Minutes): 48
[2023-12-26] MEDS: FUROSEMIDE 40 MG/4 ML VIAL IV SCH (22:25)
[2023-12-26] MEDS: AZITHROMYCIN IV 500 MG in NA CHLORIDE 0.9% 250 ML IVPB SCH (22:26)
[2023-12-26] MEDS: CEFTRIAXONE 1,000 MG in NA CHLORIDE 0.9% 50 ML IVPB SCH (22:32)
[2023-12-26] MEDS: POTASSIUM CL SA 10 MEQ TAB PO ONE (23:22)
[2023-12-27] MEDS: METHYLPREDNISOLONE 40 MG INJ IV SCH ×2 (00:36→21:04)
[2023-12-27] MEDS: ALPRAZOLAM 0.25 MG TABLET PO ONE (00:36)
[2023-12-27] MEDS: IPRATROPIUM BROM 0.5MG/2.5ML NEB SCH (01:38)
[2023-12-27 04:43] LABS: Absolute Lymphocytes (CBC) 0.2 K/uL (0.7-4.9); Absolute Monocytes 0.2 K/uL (0.1-1.3); Absolute Neutrophil 8.4 K/uL (1.8-8.0); Basophils % 0.1 % (0-1.3); Hematocrit 22.2 % (36.0-45.0); Hemoglobin 7.6 g/dL (12.0-15.0); Lymphocytes % 2.3 % (15.3-44.8); MCH 29.1 pg (27.0-35.0); MCHC 34.1 g/dL (32.0-36.0); MCV 85.3 fL (80-100); MPV 7.4 fL (7.6-11.3); Monocytes % 2.3 % (3.3-12.3); Nucleated Red Blood Cells % 0.1 % (0-0); Platelets 355 thou/uL (152-406); RBC Red Blood Cell Count 2.61 M/uL (3.86-4.86); Red Cell Distribution Width 18.7 % (12.1-15.2)
[2023-12-27 04:53] LABS: Neutrophils % 95.3 % (41.7-73.7)
[2023-12-27 04:59] LABS: Anion Gap 12.6 mEq/L (5.0-15.0); Magnesium 2.1 mg/dL (1.6-2.4); Potassium 3.6 mEq/L (3.5-5.1)
[2023-12-27] MEDS: FUROSEMIDE 40 MG/4 ML VIAL IV SCH ×2 (05:54→16:28)
[2023-12-27] MEDS: POTASSIUM CL SA 10 MEQ TAB PO ONE (06:26)
[2023-12-27] MEDS: ONDANSETRON 4 MG/2 ML VIAL IV PRN (06:33)
[2023-12-27] MEDS: ENOXAPARIN 40 MG/0.4 ML SQ SCH (08:34)
--- NOTE | 2023-12-27 09:38 | P.CNS ---
Date of Consult: 12/27/23 Reason for Consult: Metastatic lung disease with pleural effusion shortness of breath Chief Complaint: SOB History of Present Illness: Patient is 58 years of age female has metastatic cervical cancer s/p radiation has bilateral nephrostomy tubes. With progressive dyspnea she has been having progressive dyspnea for the past 2 weeks daughter at the bedside has become progressively weak also has some lower extremity edema and was found to have extensive metastatic disease with bilateral pleural effusion [place] any fever or chills has progressively declined Allergies No Known Allergies Allergy (Unverified 10/05/23 09:23) Home Medications: Oxycodone HCl 5 mg PO Q4HP PRN 10/31/23 Albuterol Inhaler [Ventolin Inhaler] 2 puff IH Q6H PRN 12/26/23 Trazodone HCl 50 mg PO BEDTIME PRN 12/26/23 - Past Medical/Surgical History Diabetic: No -: Stage IV cervical cancer -: Kidney stones -: cholelithiasis -: Bilateral nephrostomy tube -: Radiation -: C section - Social History Alcohol use: No CD- Drugs: No Caffeine use: No Place of Residence: Home Review of Systems 10-point ROS is otherwise unremarkable General: Weakness, Malaise Respiratory: Cough, Shortness of Breath Physical Examination Temp Pulse Resp BP Pulse Ox 97.7 F 101 H 26 H 101/57 L 96 12/27/23 08:00 12/27/23 09:00 12/27/23 09:00 12/27/23 09:00 12/27/23 09:00 General: Alert, Oriented x3, Moderate distress Respiratory: Crackles/rales (Crackles bilaterally) Cardiovascular: No edema, Normal pulses, Regular rate/rhythm Gastrointestinal: Normal bowel sounds, Soft and benign, Non-distended Laboratory Data (last 24 hrs) 12/26/23 12/26/23 12/26/23 15:53 15:53 15:40 WBC Hgb Hct Plt Count PT 15.6 H INR 1.43 APTT 23.1 L Sodium Potassium BUN Creatinine Glucose Total Bilirubin 0.5 AST 33 ALT 38 Alkaline Phosphatase 59 12/26/23 12/26/23 15:40 15:40 WBC 7.80 Hgb 8.0 L Hct 23.9 L Plt Count 353 PT INR APTT Sodium 124 L Potassium 3.3 L BUN 21 H Creatinine 0.65 Glucose 166 H Total Bilirubin AST ALT Alkaline Phosphatase - Problems (1) Respiratory failure Current Visit: Yes Status: Acute Plan: Patient is 58 years of age admitted with progressive dyspnea bilateral pleural effusion bilateral metastatic disease I suspect from a cervical cancer she was undergoing some radiation and chemotherapy that was temporarily halted has become progressively worse there is no evidence of pulmonary embolism chest x- ray CT scan reviewed shows diffuse bilateral pleural effusions labs reviewed BNP is elevated patient is mildly anemic vital signs are stable there is no evidence of sepsis can DC IV antibiotics reduce the dose of steroids and Lasix for now prognosis is poor consider hospice care patient has very high level anxiety add clonazepam scheduled and Xanax as needed gnosis very poor
[2023-12-27 09:53] LABS: Specific Gravity 1.021 (1.005-1.030); Sqamous Epithelial None Seen /HPF (None Seen); Urine Bacteria 20-50 /HPF (<20); Urine Bilirubin NEGATIVE (Negative); Urine Blood 1+ (Negative); Urine Clarity Extremely Turbid (Clear); Urine Color Light-Yellow (Yellow); Urine Culture Reflex Order REFLEXED; Urine Glucose NEGATIVE (Negative); Urine Ketones NEGATIVE (Negative); Urine Microscopic Reflex YN ORDER UMIC; Urine Mucus Slight /HPF (None Seen); Urine Nitrite 1+ (Negative); Urine Protein 1+ (Negative); Urine Urobilinogen Normal (Normal); Urine WBC 20-50 /HPF (<5); Urine WBC Clump Rare /HPF (None Seen); Urine pH 6.5 (5.0-7.0)
--- NOTE | 2023-12-27 10:08 | RAD REPORT ---
EXAM DESCRIPTION: RAD - Chest Single View - 12/27/2023 9:58 am CLINICAL HISTORY: Pulmonary edema COMPARISON: Chest Single View dated 12/26/2023; Chest Single View dated 10/31/2023; Chest Single View dated 10/04/2023; Chest For Pe Angio dated 12/26/2023 FINDINGS: Lines: Right IJ approach Port-A-Cath with tip overlying the distal SVC. Lungs: Patchy and irregular bilateral interstitial and airspace disease with worsened aeration in the upper lobes compared with yesterday. Pleural: Bilateral pleural effusions present. Cardiac: Obscured Mediastinum: Within normal limits. Bones: No acute fractures. Other: None IMPRESSION: Worsened aeration of the lungs compared with 12/26/2023 that could reflect a combination of pulmonary edema, metastatic disease, and pleural effusions.
[2023-12-27] MEDS: clonazePAM 1 MG TAB PO SCH (11:07)
--- NOTE | 2023-12-27 12:48 | P.CNS ---
Date of Consult: 12/27/23 Chief Complaint: SOB History of Present Illness: Patient with history of cervical cancer, stage 4 with lung mets presented with worsening SOB, bilateral lower extremities edema and generalized weakness, also report epigastric hest pain, patient is persian speaking so history was taken from family and patient, work shown bilateral pleural effusions, denies any other cardiac symptoms. Allergies No Known Allergies Allergy (Unverified 10/05/23 09:23) Home Medications: Oxycodone HCl 5 mg PO Q4HP PRN 10/31/23 Albuterol Inhaler [Ventolin Inhaler] 2 puff IH Q6H PRN 12/26/23 Trazodone HCl 50 mg PO BEDTIME PRN 12/26/23 - Past Medical/Surgical History Diabetic: No -: Stage IV cervical cancer -: Kidney stones -: cholelithiasis -: Bilateral nephrostomy tube -: Radiation -: C section - Social History Alcohol use: No CD- Drugs: No Caffeine use: No Place of Residence: Home Review of Systems 10-point ROS is otherwise unremarkable Physical Examination Temp Pulse Resp BP Pulse Ox 96.8 F 94 H 27 H 106/58 L 98 12/27/23 12:00 12/27/23 12:00 12/27/23 12:00 12/27/23 12:00 12/27/23 12:00 General: Alert, In no apparent distress HEENT: Atraumatic, PERRLA, Mucous membr. moist/pink, EOMI, Sclerae nonicteric Neck: Supple, 2+ carotid pulse no bruit, No LAD, Without JVD or thyroid abnormality Respiratory: Clear to auscultation bilaterally, Normal air movement Cardiovascular: Regular rate/rhythm, Normal S1 S2, Edema Gastrointestinal: Normal bowel sounds, No tenderness Musculoskeletal: No tenderness Integumentary: No rashes Neurological: Normal gait, Normal speech, Normal tone, Normal affect Lymphatics: No axilla or inguinal lymphadenopathy Laboratory Data (last 24 hrs) 12/26/23 12/26/23 12/26/23 15:53 15:53 15:40 WBC Hgb Hct Plt Count PT 15.6 H INR 1.43 APTT 23.1 L Sodium Potassium BUN Creatinine Glucose Total Bilirubin 0.5 AST 33 ALT 38 Alkaline Phosphatase 59 12/26/23 12/26/23 15:40 15:40 WBC 7.80 Hgb 8.0 L Hct 23.9 L Plt Count 353 PT INR APTT Sodium 124 L Potassium 3.3 L BUN 21 H Creatinine 0.65 Glucose 166 H Total Bilirubin AST ALT Alkaline Phosphatase - Problems (1) Bilateral lower extremity edema Current Visit: Yes Status: Acute Plan: agree with Lasix 40 mg IV q8 her pleural effusion can be from metastatic lung cancer too, so lasix is kind a palliative to help improve her breathing. get Echo. (2) Respiratory failure Current Visit: Yes Status: Acute Plan: as above. (3) Chest pain, rule out acute myocardial infarction Current Visit: No Status: Acute Plan: epigastric in nature with negative cardiac enzymes get echo
[2023-12-28 08:03] LABS: Albumin 2.4 g/dL (3.4-5.0); Albumin/Globulin Ratio 0.5 (1.1-1.8); Anion Gap 8.4 mEq/L (5.0-15.0); Bilirubin Total 0.3 mg/dL (0.2-1.0); Globulin 4.6 g/dL (2.3-3.5); Magnesium 2.3 mg/dL (1.6-2.4); Phosphorus 5.2 mg/dL (2.5-4.9); Potassium 3.4 mEq/L (3.5-5.1)
[2023-12-28] MEDS: POTASSIUM CL SA 10 MEQ TAB PO ONE (09:28)
--- NOTE | 2023-12-28 10:23 | P.PN ---
Subjective Date of Service: 12/28/23 Chief Complaint: SOB Subjective: No new changes, No C/O voiced, Tolerating diet, Ambulating, Improving Review of Systems 10-point ROS is otherwise unremarkable Physical Examination - Vital Signs Temperature: 97 F Blood Pressure: 100/53 Pulse: 95 Respirations: 30 Pulse Ox (%): 94 - Physical Exam General: Alert, In no apparent distress HEENT: Atraumatic, PERRLA, EOMI Neck: Supple, JVD not distended Respiratory: Clear to auscultation bilaterally, Normal air movement Cardiovascular: Regular rate/rhythm, Normal S1 S2 Gastrointestinal: Normal bowel sounds, No tenderness Musculoskeletal: No tenderness Integumentary: No rashes Neurological: Normal speech, Normal tone, Normal affect Lymphatics: No axilla or inguinal lymphadenopathy - Studies Medications List Reviewed: Yes Assessment And Plan - Current Problems (Diagnosis) (1) Bilateral lower extremity edema Current Visit: Yes Status: Acute Plan: Lasix 40 mg IV q8 her pleural effusion can be from metastatic lung cancer too, so lasix is kind a palliative to help improve her breathing. get Echo. (2) Respiratory failure Current Visit: Yes Status: Acute Plan: as above. (3) Chest pain, rule out acute myocardial infarction Current Visit: No Status: Acute Plan: epigastric in nature with negative cardiac enzymes get echo
--- NOTE | 2023-12-28 11:31 | RAD REPORT ---
EXAM DESCRIPTION: RADChest Single View12/28/2023 4:28 am CLINICAL HISTORY: Pulmonary edema COMPARISON: Chest Single View dated 12/27/2023; Chest Single View dated 12/26/2023; Chest Single View dated 10/31/2023; Chest Single View dated 10/04/2023; Chest For Pe Angio dated 12/26/2023 TECHNIQUE: Portable AP view of the chest. FINDINGS: Scattered bilateral airspace opacities and small layering pleural effusions are stable. Ri ght chest wall medication port again seen. Catheter tip again projects over the right atrium. No pne umothorax or effusion. The cardiomediastinal contours are unremarkable. IMPRESSION: Essentially stable appearance of the chest, with scattered bilateral airspace opacities, likely corresponding to numerous bilateral pulmonary nodules seen on prior exam, most suggestive of metastatic disease. Other areas of airspace opacities and layering effusions may reflect central sharona estion or edema.
--- NOTE | 2023-12-28 14:18 | EKG ---
Test Date: 2023-12-26 Test Time: 15:08:08 Stenotype Operator: HB MEASUREMENT RESULTS: Intervals: Rate: 114 TX: 112 QRSD: 86 QT: 310 QTc: 427 [place]: P: 49 TX: 112 QRS: 14 T: 42 INTERPRETIVE STATEMENTS: Sinus tachycardia Otherwise normal ECG Compared to ECG 10/31/2023 02:27:08 Sinus rhythm no longer present ST (T wave) deviation no longer present Electronically Signed On 12-28-23 14:13:00 CDT by Usman Bush
--- NOTE | 2023-12-28 14:43 | ECHO ---
HEIGHT: 5 ft 2 in WEIGHT: 121 lb 0 oz DATE OF STUDY: 12/28/[address]: Miguel Richardson DO 2-DIMENSIONAL: YES M.MODE: YES DOPPLER: YES COLOR FLOW: YES TDS: PORTABLE: YES DEFINITY: BUBBLE STUDY: DIAGNOSIS: CONGESTIVE HEART FAILURE CARDIAC HISTORY: CATHERIZATION: NO SURGERY: NO PROSTHETIC VALVE: NO PACEMAKER: NO MEASUREMENTS (cm) DIASTOLIC (NORMALS) SYSTOLIC (NORMALS) IVSd 1.1 (0.6-1.2) LA Diam 2.1 (1.9-4.0) LVEF 59% LVIDd 3.2 (3.5-5.7) LVIDs 2.2 (2.0-3.5) %FS 30% LVPWd 1.1 (0.6-1.2) Ao Diam 2.2 (2.0-3.7) 2 DIMENSIONAL ASSESSMENT: RIGHT ATRIUM: NORMAL LEFT ATRIUM: NORMAL RIGHT VENTRICLE: NORMAL LEFT VENTRICLE: NORMAL TRICUSPID VALVE: MILD TRICUSPID REGURGITATION MITRAL VALVE: NORMAL PULMONIC VALVE: NORMAL AORTIC VALVE: NORMAL PERICARDIAL EFFUSION: NONE AORTIC ROOT: NORMAL LEFT VENTRICULAR WALL MOTION: NORMAL DOPPLER/COLOR FLOW: SEE BELOW COMMENTS: 1. NORMAL LEFT VENTRICULAR EJECTION FRACTION 55-60% 2. NORMAL WALL MOTION 3. GRADE I DIASTOLIC DYSFUNCTION 4. RIGHT VENTRICULAR SYSTOLIC PRESSURE IS 35 mmHg PLUS RIGHT ATRIAL PRESSURE TECHNOLOGIST: MERCEDES LU
[2023-12-28] MEDS ORDERED: ALBUTEROL 2.5 MG/3 ML NEB SOL NEB PRN (17:13)
[2023-12-28] MEDS: LACTULOSE 20 GM/30 ML UCUP PO ONE (17:45)
[2023-12-29] MEDS: ALPRAZOLAM 0.25 MG TABLET PO PRN (01:26)
[2023-12-29 06:24] VITALS: BMI 22.4
--- NOTE | 2023-12-29 07:38 | RAD REPORT ---
EXAM DESCRIPTION: RAD - Chest Single View - 12/29/2023 5:22 am CLINICAL HISTORY: Pulmonary edema Chest pain. COMPARISON: Chest Single View dated 12/28/2023; Chest Single View dated 12/27/2023; Chest Single View dated 12/26/2023; Chest Single View dated 10/31/2023 FINDINGS: Portable technique limits examination quality. Moderate bilateral pulmonary opacities with pleural effusions are unchanged. The heart is mildly enla rged in size. Right-sided port catheter has tip in the SVC.
[2023-12-29 07:55] LABS: Absolute Lymphocytes (CBC) 0.2 K/uL (0.7-4.9); Absolute Monocytes 0.3 K/uL (0.1-1.3); Absolute Neutrophil 7.6 K/uL (1.8-8.0); Basophils % 0.2 % (0-1.3); Hemoglobin 7.6 g/dL (12.0-15.0); Lymphocytes % 2.8 % (15.3-44.8); MCH 28.8 pg (27.0-35.0); MCHC 33.2 g/dL (32.0-36.0); MCV 86.7 fL (80-100); Monocytes % 4.2 % (3.3-12.3); Neutrophils % 92.8 % (41.7-73.7); Nucleated Red Blood Cells % 0.4 % (0-0); Platelets 358 thou/uL (152-406); RBC Red Blood Cell Count 2.66 M/uL (3.86-4.86)
[2023-12-29 08:06] LABS: Albumin 2.3 g/dL (3.4-5.0); Albumin/Globulin Ratio 0.5 (1.1-1.8); Anion Gap 5.9 mEq/L (5.0-15.0); Bilirubin Total 0.2 mg/dL (0.2-1.0); Globulin 4.4 g/dL (2.3-3.5); Magnesium 2.7 mg/dL (1.6-2.4); Phosphorus 5.1 mg/dL (2.5-4.9); Potassium 3.9 mEq/L (3.5-5.1); Protein, Total 6.7 g/dL (6.4-8.2)
[2023-12-29] MEDS ORDERED: NOREPINEPHRINE 4 MG in D5W 250 ML IV SCH (10:00)
--- NOTE | 2023-12-29 10:14 | RAD REPORT ---
EXAM DESCRIPTION: RAD - Chest Lateral Decubitus - 12/29/2023 10:07 am CLINICAL HISTORY: pleural effusion COMPARISON: Chest Single View dated 12/29/2023; Chest For Pe Angio dated 12/26/2023 FINDINGS: Bilateral pleural effusions are present, small to moderate in size. There is limited layer ing seen suggesting that the majority of the fluid is loculated. IMPRESSION: Predominately loculated bilateral moderate pleural effusions.
[2023-12-29] MEDS ORDERED: ALBUMIN HUMAN 25% 100 ML IV ONE (12:27)
--- NOTE | 2023-12-29 18:14 | P.PN ---
Subjective Date of Service: 12/29/23 Chief Complaint: SOB Subjective: No new changes, No C/O voiced, Tolerating diet, Ambulating, Improving Review of Systems 10-point ROS is otherwise unremarkable Physical Examination - Vital Signs Temperature: 97.2 F Blood Pressure: 124/67 Pulse: 97 Respirations: 17 Pulse Ox (%): 98 - Physical Exam General: Alert, In no apparent distress HEENT: Atraumatic, PERRLA, EOMI Neck: Supple, JVD not distended Respiratory: Clear to auscultation bilaterally, Normal air movement Cardiovascular: Regular rate/rhythm, Normal S1 S2 Gastrointestinal: Normal bowel sounds, No tenderness Musculoskeletal: No tenderness Integumentary: No rashes Neurological: Normal speech, Normal tone, Normal affect Lymphatics: No axilla or inguinal lymphadenopathy - Studies Medications List Reviewed: Yes Assessment And Plan - Current Problems (Diagnosis) (1) Bilateral lower extremity edema Current Visit: Yes Status: Acute Plan: Lasix 40 mg IV q12 (may switch to Lasix 40 mg po BID in am) her pleural effusion can be from metastatic lung cancer too, so lasix is kind a palliative to help improve her breathing. (2) Respiratory failure Current Visit: Yes Status: Acute Plan: as above. (3) Chest pain, rule out acute myocardial infarction Current Visit: No Status: Acute Plan: epigastric in nature with negative cardiac enzymes no further cardiac work up needed.
--- NOTE | 2023-12-30 09:45 | P.PN ---
Subjective Date of Service: 12/30/23 Chief Complaint: SOB Subjective: No new changes, No C/O voiced, Tolerating diet, Ambulating, Improving Review of Systems 10-point ROS is otherwise unremarkable Physical Examination - Vital Signs Temperature: 97.2 F Blood Pressure: 134/72 Pulse: 91 Respirations: 16 Pulse Ox (%): 96 - Physical Exam General: Alert, In no apparent distress HEENT: Atraumatic, PERRLA, EOMI Neck: Supple, JVD not distended Respiratory: Clear to auscultation bilaterally, Normal air movement Cardiovascular: Regular rate/rhythm, Normal S1 S2 Gastrointestinal: Normal bowel sounds, No tenderness Musculoskeletal: No tenderness Integumentary: No rashes Neurological: Normal speech, Normal tone, Normal affect Lymphatics: No axilla or inguinal lymphadenopathy - Studies Medications List Reviewed: Yes Assessment And Plan - Current Problems (Diagnosis) (1) Bilateral lower extremity edema Current Visit: Yes Status: Acute Plan: switch to Lasix 40 mg po BID her pleural effusion can be from metastatic lung cancer too, so lasix is kind a palliative to help improve her breathing. (2) Respiratory failure Current Visit: Yes Status: Acute Plan: as above. (3) Chest pain, rule out acute myocardial infarction Current Visit: No Status: Acute Plan: epigastric in nature with negative cardiac enzymes no further cardiac work up needed. Cardiology will sign off. please call if any questions.
[2023-12-30 14:39] VITALS: O2SAT 93
--- NOTE | 2023-12-30 14:46 | P.PN ---
Date of Service: 12/27/23 Subjective Patient is admitted to the hospital with metastatic cervical cancer with metastasis to the lungs. Patient appears to have a malignant pleural effusion. Patient is given clinical treatment with oncology, but treatment has been on hold. Patient scheduled for PET scan later this week. However, patient's long- term prognosis is very poor as patient has worsening metastasis of the lung lesions even in light of chemotherapy. Patient is hypoxic and will continue with antibiotic therapy. Monitor pleural effusions. Physical Examination - Vital Signs Reviewed - Physical Exam General: Alert, Oriented x3, Moderate distress Respiratory: Diminished, Crackles/rales Cardiovascular: Regular rate/rhythm, Normal S1 S2 Gastrointestinal: Soft and benign, Non-distended, W/out hepatosplenomegaly Musculoskeletal: No clubbing, Swelling Integumentary: No rashes, No breakdown Neurological: No focal deficits Assessment and Plan - Problems (Diagnosis) (1) Acute hypoxic respiratory failure secondary to malignant pleural effusion and pneumonia Current Visit: Yes Status: Acute Plan: 1. Wean off BiPAP support 2. Patient appears to have pneumonic infiltrate and will continue with IV antibiotic therapy 3. Continue with nebs and steroids 4. Pulmonary consultation pending 5. Echocardiogram pending 6. Outpatient follow-up with oncology and consider palliative care (2) Metastatic cervical cancer Current Visit: Yes Status: Acute Plan: 1. Patient with worsening metastasis; will consider palliative care (3) Anemia of chronic disease Current Visit: Yes Status: Acute Plan: 1. Monitor H&H 2. Iron studies 3. B12 studies 4. GI prophylaxis Discharge Plan: Home Plan to discharge in: Greater than 2 days - Advance Directives Does patient have a Living Will: No Does patient have a Durable POA for Healthcare: No - Code Status/Comfort Care Code Status: Full Code Time Spent Managing Pts Care (In Minutes): 48
--- NOTE | 2023-12-30 14:52 | P.PN ---
Date of Service: 12/28/23 Subjective Patient is clinically feeling a little bit better. Patient has been weaned down the oxygen. Will go ahead and downgrade her to a general medical floor. Will start physical therapy as well. Physical Examination - Vital Signs Reviewed - Physical Exam General: Alert, Oriented x3, Moderate distress Respiratory: Diminished, Crackles/rales Cardiovascular: Regular rate/rhythm, Normal S1 S2 Gastrointestinal: Soft and benign, Non-distended, W/out hepatosplenomegaly Musculoskeletal: No clubbing, Swelling Integumentary: No rashes, No breakdown Neurological: No focal deficits Assessment and Plan - Problems (Diagnosis) (1) Acute hypoxic respiratory failure secondary to malignant pleural effusion and pneumonia Current Visit: Yes Status: Acute Plan: 1. Weaned oxygen; continue to wean down oxygen support. Off BiPAP support 2. Continue with IV antibiotic therapy 3. Continue with nebs and steroids 4. Pulmonary consultation appreciated 5. Echocardiogram completed 6. Outpatient follow-up with oncology and consider palliative care (2) Metastatic cervical cancer Current Visit: Yes Status: Acute Plan: 1. Patient with worsening metastasis; spoke to family and patient scheduled to get a PET scan. However, if this is worsening then she may need palliative care. (3) Anemia of chronic disease Current Visit: Yes Status: Acute Plan: 1. Monitor H&H 2. Iron studies 3. B12 studies 4. GI prophylaxis Discharge Plan: Home Plan to discharge in: Greater than 2 days - Advance Directives Does patient have a Living Will: No Does patient have a Durable POA for Healthcare: No - Code Status/Comfort Care Code Status: Full Code Time Spent Managing Pts Care (In Minutes): 48
--- NOTE | 2023-12-30 14:54 | P.PN ---
Date of Service: 12/29/23 Subjective Patient was transferred to general medical floor. Patient clinical symptoms continue to improve. Patient respiratory status are much better. Patient remains hypoxic Physical Examination - Vital Signs Reviewed - Physical Exam General: Alert, Oriented x3, Moderate distress Respiratory: Basilar crackles/rales; and expiratory wheezing Cardiovascular: Regular rate/rhythm, Normal S1 S2 Gastrointestinal: Soft and benign, Non-distended, W/out hepatosplenomegaly Musculoskeletal: No clubbing, Swelling BLE Integumentary: No rashes, No breakdown Neurological: No focal deficits; generalized weakness Assessment and Plan - Problems (Diagnosis) (1) Acute hypoxic respiratory failure secondary to malignant pleural effusion and pneumonia Current Visit: Yes Status: Acute Plan: 1. Patient remains hypoxic and will arrange for home oxygen at this time. 2. Continue with IV antibiotic therapy 3. Continue with nebs 4. Pulmonary consultation appreciated 5. Echocardiogram completed 6. Outpatient follow-up with oncology and consider palliative care (2) Metastatic cervical cancer Current Visit: Yes Status: Acute Plan: 1. Patient with worsening metastasis; spoke to family and patient scheduled to get a PET scan. However, if this is worsening then she may need palliative care. (3) Anemia of chronic disease Current Visit: Yes Status: Acute Plan: 1. Monitor H&H Discharge Plan: Home Plan to discharge in: Greater than 2 days - Advance Directives Does patient have a Living Will: No Does patient have a Durable POA for Healthcare: No - Code Status/Comfort Care Code Status: Full Code Time Spent Managing Pts Care (In Minutes): 48
--- NOTE | 2023-12-30 14:55 | P.PN ---
Date of Service: 12/30/23 Subjective Family considering to discharge if we get home oxygen arranged. Once it is delivered we could go home if the family wants PET scan performed. We did encourage her to get out of bed and ambulate. Will get physical therapy evaluation and get nurses to ambulate her. If he does well then she should be able to go home today so she can get her PET scan in the morning. Physical Examination - Vital Signs Reviewed - Physical Exam General: Alert, Oriented x3, Moderate distress Respiratory: Basilar crackles/rales; and expiratory wheezing Cardiovascular: Regular rate/rhythm, Normal S1 S2 Gastrointestinal: Soft and benign, Non-distended, W/out hepatosplenomegaly Musculoskeletal: No clubbing, Swelling BLE Integumentary: No rashes, No breakdown Neurological: No focal deficits; generalized weakness Assessment and Plan - Problems (Diagnosis) (1) Acute hypoxic respiratory failure secondary to malignant pleural effusion and pneumonia Current Visit: Yes Status: Acute Plan: 1. Patient remains hypoxic and will arrange for home oxygen at this time. 2. Continue with IV antibiotic therapy 3. Continue with nebs 4. Pulmonary consultation appreciated 5. Echocardiogram completed 6. Outpatient follow-up with oncology and consider palliative care (2) Metastatic cervical cancer Current Visit: Yes Status: Acute Plan: 1. Patient with worsening metastasis; spoke to family and patient scheduled to get a PET scan. However, if this is worsening then she may need palliative care. (3) Anemia of chronic disease Current Visit: Yes Status: Acute Plan: 1. Monitor H&H Discharge Plan: Home Plan to discharge in: Greater than 2 days - Advance Directives Does patient have a Living Will: No Does patient have a Durable POA for Healthcare: No - Code Status/Comfort Care Code Status: Full Code Time Spent Managing Pts Care (In Minutes): 48
[2023-12-30] MEDS: AMPICILLIN/SULBACT 3 GM in NA CHLORIDE 0.9% 100 ML IVPB SCH (16:16)
[2023-12-30 17:51] VITALS: BP 134/64; TEMP 98
--- NOTE | 2024-01-04 10:06 | P.DS ---
Discharge Date: 12/30/23 Disposition: DC HOME/HOME HEALTH CARE Discharge Condition: GOOD Reason for Admission: SOB Brief History of Present Illness: Patient is a 58-year-old female with history of cervical cancer who has been on chemotherapy but has declined. Patient came with pneumonia was treated with IV antibiotics. Patient was admitted to the ICU because of her degree of hypoxia EM. Patient will continue with IV antibiotics a Hospital Course: patient clinically doing well and patient's oxygenation is improved. Arrange for home oxygen and once this deliver we will discharge patient home with antibiotic therapy for pneumonia. Vital Signs/Physical Exam: Temp Pulse Resp BP Pulse Ox 98.0 F 99 H 36 H 134/64 95 12/30/23 16:00 12/30/23 16:00 12/30/23 16:00 12/30/23 16:00 12/30/23 16:00 General: Alert, In no apparent distress, Oriented x3 Laboratory Data at Discharge: WBC 8.20 thou/uL (4.3-10.9) 12/29/23 07:27 Hgb 7.6 g/dL (12.0-15.0) L 12/29/23 07:27 Hct 23.0 % (36.0-45.0) L 12/29/23 07:27 Plt Count 358 thou/uL (152-406) 12/29/23 07:27 PT 15.6 SECONDS (9.5-12.5) H 12/26/23 15:53 INR 1.43 12/26/23 15:53 APTT 23.1 SECONDS (24.3-36.9) L 12/26/23 15:53 Sodium 135 mEq/L (136-145) L 12/29/23 07:27 Potassium 3.9 mEq/L (3.5-5.1) D 12/29/23 07:27 BUN 48 mg/dL (7-18) H 12/29/23 07:27 Creatinine 1.03 mg/dL (0.55-1.02) H 12/29/23 07:27 Glucose 158 mg/dL (74-106) H 12/29/23 07:27 Phosphorus 5.1 mg/dL (2.5-4.9) H 12/29/23 07:27 Magnesium 2.7 mg/dL (1.6-2.4) H 12/29/23 07:27 Total Bilirubin 0.2 mg/dL (0.2-1.0) 12/29/23 07:27 AST 16 U/L (15-37) 12/29/23 07:27 ALT 34 U/L (13-56) 12/29/23 07:27 Alkaline Phosphatase 63 U/L (45-117) 12/29/23 07:27 Home Medications: Oxycodone HCl 5 mg PO Q4HP PRN 10/31/23 Albuterol Inhaler [Ventolin Inhaler*] 2 puff IH Q6H PRN 12/26/23 Trazodone HCl 50 mg PO BEDTIME PRN 12/26/23 Albuterol Neb [Proventil 0.083% Neb Soln] 2.5 mg NEB Q6HP PRN #60 amp 12/30/23 Albuterol Neb [Proventil 0.083% Neb Soln] 2.5 mg NEB [id number] PRN #60 amp 12/30/23 Amox/Clavulanate [Augmentin 875-125 Tab] 1 each PO BID #14 tab 12/30/23 Amox/Clavulanate [Augmentin 875-125 Tab] 1 each PO BID #14 tab 12/30/23 Furosemide 20 mg PO DAILY #30 tab 12/30/23 Furosemide [Lasix] 20 mg PO DAILY #30 tab 12/30/23 Ipratropium Neb [Atrovent*] 0.5 mg NEB Q6HP #60 amp 12/30/23 Ipratropium Neb [Atrovent*] 0.5 mg NEB Q6HP PRN #60 amp 12/30/23 Nebulizer 1 each MC DAILY #1 ea 12/30/23 Nebulizer 1 each MC DAILY #1 ea 12/30/23 Nebulizer Accessories [Aeroneb Go] 1 each MC DAILY #1 ea 12/30/23 Nebulizer Accessories [Aeroneb Go] 1 each MC DAILY #1 ea 12/30/23 Potassium Cl [Klor-Con 8] 8 meq PO BID #60 tab 12/30/23 predniSONE [Deltasone] 20 mg PO BID #20 tab 12/30/23 predniSONE [Deltasone] 20 mg PO BID #20 tab 12/30/23 New Medications: Nebulizer Accessories [Aeroneb Go] 1 each MC DAILY #1 ea Nebulizer Accessories [Aeroneb Go] 1 each MC DAILY #1 ea Ipratropium Neb [Atrovent*] 0.5 mg NEB Q6HP PRN #60 amp PRN Reason: dyspnea Ipratropium Neb [Atrovent*] 0.5 mg NEB Q6HP #60 amp Amox/Clavulanate [Augmentin 875-125 Tab] 1 each PO BID #14 tab Amox/Clavulanate [Augmentin 875-125 Tab] 1 each PO BID #14 tab Furosemide 20 mg PO DAILY #30 tab Potassium Cl [Klor-Con 8] 8 meq PO BID #60 tab Furosemide [Lasix] 20 mg PO DAILY #30 tab Nebulizer 1 each MC DAILY #1 ea Nebulizer 1 each MC DAILY #1 ea predniSONE [Deltasone] 20 mg PO BID #20 tab predniSONE [Deltasone] 20 mg PO BID #20 tab Albuterol Neb [Proventil 0.083% Neb Soln] 2.5 mg NEB [id number] PRN #60 amp PRN Reason: Shortness Of Breath Albuterol Neb [Proventil 0.083% Neb Soln] 2.5 mg NEB Q6HP PRN #60 amp PRN Reason: Shortness Of Breath Physician Discharge Instructions: Home oxygen provided by: [facility] [id number] [place] [address] P: Diet: Regular Activity: Fall precautions Followup: NONE,NONE [Primary Care Provider] - Time spent managing pt's care (in minutes): 35
== END 2023-12-30 18:41 | disposition home health service (06) | DRG 754 ==
LOC: ER 14:57 → ERHOLD 19:41 → 3RD-ICU 20:38 → 4TH 12-29 13:43
PROVIDERS: ADMIT Family Medicine; ATTEND Hospitalist
PROC: 5A09557 Assistance with Respiratory Ventilation, Greater than 96 Consecutive Hours, Continuous Positive Airway Pressure (ICD-10-PCS; principal; 2023-12-26)
PROC: 4A033R1 Measurement of Arterial Saturation, Peripheral, Percutaneous Approach (ICD-10-PCS; 2023-12-26)
DX: C79.82 Secondary malignant neoplasm of genital organs (principal); J18.9 Pneumonia, unspecified organism; J96.01 Acute respiratory failure with hypoxia; J91.0 Malignant pleural effusion; C78.00 Secondary malignant neoplasm of unspecified lung; E87.1 Hypo-osmolality and hyponatremia; N15.9 Renal tubulo-interstitial disease, unspecified; I10 Essential (primary) hypertension; E87.6 Hypokalemia; D63.8 Anemia in other chronic diseases classified elsewhere; C80.1 Malignant (primary) neoplasm, unspecified; Z93.6 Other artificial openings of urinary tract status; Z98.51 Tubal ligation status; Z79.52 Long term (current) use of systemic steroids; Z79.899 Other long term (current) drug therapy
CPT/HCPCS: 36415; 36600; 71045; 71046; 71275; 80048; 80053; 80076; 81001; 82805; 82947; 83735; 83880; 84100; 84484; 85025; 85610; 85730; 87077; 87086; 87088; 87186; 93005; 93306; 94640; 94660; 94760; 97110; 97116; 97163; 97530; 99284; J0295; J0696; J1650; J1940; J2405; J2920; J7050; J7644; Q9967